=== PATIENT | female | born 1960 | race Caucasian/White ===

== ENCOUNTER 2021-04-14 23:48 | Inpatient (IN) | payer BC ==
--- OUTSIDE RECORDS SUMMARY | 2021-04-14 23:50 | XMS REPORT | Continuity of Care Document ---
:1960 Author Organization [facility] t Address [address] [place] [address] Care Team Providers Name Role Phone Unavailable Unavailable Unavailable Problems This patient has no known problems. Allergies, Adverse Reactions, Alerts Allergy Allergy Status Severity Reaction(s) Onset Inactive Treating Comm ents Source Name Type Date Date Clinician Macrobid Adverse Active [facility] like [facility] Medications Ordered Filled Start Stop Current Ordering Indication Dosage Frequency Signature Comments Components Source Medication Medication Date Date Medication? Clinician (SIG) Name Name BuPROPion BuPROPion Yes Jennifer [address] [facility] HCl HCl [place] [facility] Procedures This patient has no known procedures. Encounters Start End Encounter Admission Attending Care Care Encounter Source Date/Time Date/Time Type Type Clinicians Facility Department ID 2020-12-06 2020-12-[address] [facility] [id number] [facility] 2020-05-08 2020-05-08 [facility] [id number] [facility] 2019-11-04 2019-11-04 [facility] [id number] [facility] 15:42[facility]00 15:42:00 [facility] 2019-10-13 2019-10-13 [facility] [id number] [facility] 10[facility]20:00 10:20:00 [facility] 2019-04-12 2019-04-12 Outpatient Gael Tavarez [id number] [facility] 10:20:00 10:20:00 [facility] ent Clinics Results This patient has no known results.
[2021-04-15] MEDS ORDERED: METHYLPREDNISOLONE 125 MG INJ ONE (00:59)
[2021-04-15 01:04] LABS: Absolute Lymphocytes (CBC) 0.7 K/uL (0.7-4.9); Basophils % 0.3 % (0-1.3); Hematocrit 39.4 % (36.0-45.0); MPV 8.2 fL (7.6-11.3); RBC Red Blood Cell Count 4.19 M/uL (3.86-4.86)
[2021-04-15 01:05] LABS: Protime INR 1.1
[2021-04-15 01:11] LABS: ALT/SGPT 115 U/L (12-78); AST/SGOT 128 U/L (15-37); Albumin 2.5 g/dL (3.4-5.0); Alkaline Phosphatase 263 U/L (45-117); BUN Blood Urea Nitrogen 15 mg/dL (7-18); Bicarbonate 34 mmol/L (21-32); Bilirubin Direct 0.1 mg/dL (0-0.2); Bilirubin Total 0.3 mg/dL (0.2-1.0); Glucose Level 127 mg/dL (74-106); Magnesium 2.3 mg/dL (1.8-2.4); NT PRO-BNP 109 pg/mL (<125); Potassium 3.3 mmol/L (3.5-5.1); Protein, Total 6.5 g/dL (6.4-8.2); Sodium Level 137 mmol/L (136-145); Troponin (Emerg Dept Use Only) < 0.02 ng/mL (0.0-0.045)
[2021-04-15 02:31] LABS: Blood Morphology Comment NOT SEEN (NOT SEEN); Platelet Estimate ADEQ
--- NOTE | 2021-04-15 03:01 | EDPHYS ---
Physician Documentation [facility] Name: Sofía Moise Age: 60 yrs Sex: Female : 1960 Arrival Date: 04/14/2021 Time: 23:49 Bed 8 Private MD: ED Physician Nghia Arellano HPI: 04/14 23:50 This 60 yrs old Female presents to ER via Unassigned with complaints of mh7 Breathing Difficulty - LOW O2-69%. 23:50 The patient has shortness of breath at rest, with light activity. Onset: The mh7 symptoms/episode began/occurred 1 week(s) ago. Duration: The symptoms are intermittent, with no pattern. The patient's shortness of breath is aggravated by coughing, exertion, light activity, is alleviated by nothing. Associated signs and symptoms: Pertinent positives: non-productive cough, Pertinent negatives: chest pain, productive cough, diaphoresis, dizziness, fever, hemoptysis, loss of consciousness, nausea, numbness in extremities, visual changes, vomiting. Severity of symptoms: At their worst the symptoms were moderate yesterday, in the emergency department the symptoms are unchanged. Historical: - Allergies: 04/15 00:25 Nitrofurantoin; ea - Immunization history:: Adult Immunizations unknown. - Social history:: Smoking status: Patient denies any tobacco usage or history of. ROS: 04/14 23:50 Constitutional: Negative for fever, chills, and weight loss, Eyes: Negative for injury, mh7 pain, redness, and discharge, ENT: Negative for injury, pain, and discharge, Neck: Negative for injury, pain, and swelling, Cardiovascular: Negative for chest pain, palpitations, and edema, Abdomen/GI: Negative for abdominal pain, nausea, vomiting, diarrhea, and constipation, Back: Negative for injury and pain, : Negative for injury, bleeding, discharge, and swelling, MS/Extremity: Negative for injury and deformity, Skin: Negative for injury, rash, and discoloration, Neuro: Negative for headache, weakness, numbness, tingling, and seizure, Psych: Negative for depression, anxiety, suicide ideation, homicidal ideation, and hallucinations, Allergy/Immunology: Negative for hives, rash, and allergies, Endocrine: Negative for neck swelling, polydipsia, polyuria, polyphagia, and marked weight changes, Hematologic/Lymphatic: Negative for swollen nodes, abnormal bleeding, and unusual bruising. Exam: 23:50 Head/Face: Normocephalic, atraumatic. Eyes: Pupils equal round and reactive to light, mh7 extra-ocular motions intact. Lids and lashes normal. Conjunctiva and sclera are non-icteric and not injected. Cornea within normal limits. Periorbital areas with no swelling, redness, or edema. Neck: Trachea midline, no thyromegaly or masses palpated, and no cervical lymphadenopathy. Supple, full range of motion without nuchal rigidity, or vertebral point tenderness. No Meningismus. Chest/axilla: Normal chest wall appearance and motion. Nontender with no deformity. No lesions are appreciated. Abdomen/GI: Soft, non-tender, with normal bowel sounds. No distension or tympany. No guarding or rebound. No evidence of tenderness throughout. Back: No spinal tenderness. No costovertebral tenderness. Full range of motion. Skin: Warm, dry with normal turgor. Normal color with no rashes, no lesions, and no evidence of cellulitis. MS/ Extremity: Pulses equal, no cyanosis. Neurovascular intact. Full, normal range of motion. Neuro: Awake and alert, GCS 15, oriented to person, place, time, and situation. Cranial nerves II-XII grossly intact. Motor strength 5/5 in all extremities. Sensory grossly intact. Cerebellar exam normal. Normal gait. Psych: Awake, alert, with orientation to person, place and time. Behavior, mood, and affect are within normal limits. 23:50 Constitutional: The patient appears alert, awake, in obvious distress, mildly distressed, obviously ill. 23:50 Cardiovascular: Regular rate and rhythm with a normal S1 and S2. No gallops, murmurs, mh7 or rubs. Normal PMI, no JVD. No pulse deficits. 23:50 Respiratory: mild respiratory distress is noted, Respirations: prolonged exhalation, that is mild, Breath sounds: rhonchi, that are moderate, are heard diffusely, Respiratory rate: 30 Vital Signs: 04/15 00:23 BP 126 / 70; Pulse 86; Resp 30; Temp 99.1; Pulse Ox 62% on R/A; ea 00:23 pt placed on O2 at 4L per nasal cannula ea MDM: 02:59 Differential diagnosis: Anemia Anxiety Reaction asthma, Bronchitis CHF exacerbation, mh7 Chronic Obstructive Pulmonary Disease Myocardial Infarction pneumonia, Pneumothorax Psychogenic pulmonary edema, Pulmonary Embolism reactive airway disease. Data reviewed: vital signs, nurses notes, lab test result(s), cardiac enzymes, CBC, electrolytes, EKG, radiologic studies, plain films. Data interpreted: Pulse oximetry: on 4L(s) per nasal canula, is 93 %. Interpretation: acceptable. Counseling: I had a detailed discussion with the patient and/or guardian regarding: the historical points, exam findings, and any diagnostic results supporting the discharge/admit diagnosis, lab results, radiology results, the need for further work-up and treatment in the hospital. Response to treatment: the patient's symptoms have mildly improved after treatment. 03:01 Patient medically screened. [facility] 04/15 00:03 Order name: Basic Metabolic Panel; Complete Time: 01:27 [facility] 04/15 00:03 Order name: CBC with Diff; Complete Time: 02:32 [facility] 04/15 00:03 Order name: LFT's; Complete Time: 01: [facility] 04/15 00:03 Order name: Magnesium; Complete Time: 01:27 [facility] 04/15 00:03 Order name: NT PRO-BNP; Complete Time: 01:27 [facility] 04/15 00:03 Order name: PT-INR; Complete Time: 01:10 [facility] 04/15 00:03 Order name: Troponin (emerg Dept Use Only); Complete Time: 01:27 [facility] 04/15 00:05 Order name: Lactate; Complete Time: 01:27 [facility] 04/15 00:05 Order name: Procalcitonin; Complete Time: 01:55 [facility] 04/15 01:07 Order name: Manual Differential; Complete Time: 02:32 [facility] 04/15 02:32 Order name: SARS-COV-2 RT PCR; Complete Time: 02:32 [facility] 04/15 10:07 Order name: Glucose, Ancillary Testing [facility] 04/15 10:36 Order name: Procalcitonin [facility] 04/15 00:03 Order name: XRAY Chest (1 view) [facility] 04/15 00:03 Order name: EKG; Complete Time: 00:05 [facility] 04/15 00:03 Order name: Cardiac monitoring; Complete Time: 00:31 [facility] 04/15 00:03 Order name: EKG - Nurse/Tech; Complete Time: 00: 7 04/15 00:03 Order name: IV Saline Lock; Complete Time: : [facility] 04/15 00:03 Order name: Labs collected and sent; Complete Time: 00: [facility] 04/15 01:34 Order name: CT Chest For PE Angio [facility] 04/15 02:53 Order name: CONS Physician Consult [facility] 04/15 10:29 Order name: US [facility] 04/15 10:49 Order name: C-Reactive Protein [facility] 04/15 10:49 Order name: Ferritin [facility] 04/15 00:03 Order name: O2 Per Protocol; Complete Time: 00:12 [facility] 04/15 00:03 Order name: O2 Sat Monitoring; Complete Time: 00:12 [facility] Administered Medications: 00:40 Drug: SOLU-Medrol (methylPrednisoLONE) 80 mg Route: IVP; Site: right antecubital; ea 04:17 Follow up: Response: No adverse reaction ea 00:40 Not Given (Other Intervention Used): Albuterol HFA Inhaler 2 puffs Inhalation once ea 03:35 CANCELLED (Other Intervention Used): Ativan (LORazepam) 0.5 mg PO once ej 04:12 Drug: Albuterol - atroVENT (ipratropium) (3:1) (2.5 mg - 0.5 mg) 3 ml Route: Nebulizer; ea 04:17 Follow up: Response: No adverse reaction ea 04:17 Drug: morphine 2 mg Route: IVP; Site: right antecubital; ea Disposition Summary: 04/15/21 03:01 Hospitalization Ordered Hospitalization Status: Inpatient Admission [facility] Provider: Daniel Baer Elaine Condition: Stable [facility] Problem: new [facility] Symptoms: have improved [facility] Bed/Room Type: Standard [facility] Location: Intensive Care Unit(04/15/21 21:00) mw Room Assignment: 5-(04/15/21 21:00) Diagnosis - COVID Pneumonia, Hypoxia [facility] Forms: - Medication Reconciliation Form [facility] - SBAR form [facility] Signatures: Dispatcher [employer] EDLeni Schaefer RN RN mw Antunez, Elena, RN RN ea Holmes, Maurice, MD MD Alfa Mayfield PA PA ej Corrections: (The following items were deleted from the chart) 00:44 00:05 CORONAVIRUS+MRRIGO.BRZ ordered. EDMS EDMS 03:20 03:01 Telemetry/MedSurg (Inpatient) mh7 mw 03:20 03:01 mh7 mw 03:35 03:35 Ativan (LORazepam) 0.5 mg PO once ordered. frances daniels : 03:20 BR ER HOLD mw mw 21:00 03:20 ERHOLD- mw mw 21:00 21:00 mw mw
--- NOTE | 2021-04-15 03:01 | ER ---
Nurse's Notes [facility] Name: Sofía Moise Age: 60 yrs Sex: Female : 1960 Arrival Date: 04/14/2021 Time: 23:49 Bed 8 Private MD: Diagnosis: COVID Pneumonia, Hypoxia Presentation: 04/15 00:23 Chief complaint: Patient states: Reports she started feeling flu like symptoms about a ea week ago states she started feeling worse and today she reports feeling very short of breath. Coronavirus screen: Client presents with at least one sign or symptom that may indicate coronavirus-19. Ebola Screen: No symptoms or risks identified at this time. Initial Sepsis Screen: Does the patient meet any 2 criteria? No. Patient's initial sepsis screen is negative. Does the patient have a suspected source of infection? No. Patient's initial sepsis screen is negative. Risk Assessment: Do you want to hurt yourself or someone else? Patient reports no desire to harm self or others. Onset of symptoms was April 15, 2021. 00:23 Method Of Arrival: Wheelchair ea 00:23 Acuity: SHA 3 ea Triage Assessment: 00:29 General: Appears uncomfortable, Behavior is cooperative. Pain: Denies pain. ea Respiratory: Reports shortness of breath Onset: The symptoms/episode began/occurred today, the patient has moderate shortness of breath. Historical: - Allergies: 00:25 Nitrofurantoin; ea - Immunization history:: Adult Immunizations unknown. - Social history:: Smoking status: Patient denies any tobacco usage or history of. Screenin:07 Abuse screen: Denies threats or abuse. Nutritional screening: No deficits noted. ea Tuberculosis screening: No symptoms or risk factors identified. Fall Risk None identified. Assessment: 00:30 General: Appears uncomfortable, Behavior is appropriate for age. Pain: Denies pain. ea Neuro: Level of Consciousness is awake, alert, obeys commands, Oriented to person, place, time. Cardiovascular: Patient's skin is warm and dry. Rhythm is sinus rhythm. Respiratory: Airway is patent Respiratory effort is even, Respiratory pattern is tachypnea. Derm: Skin is normal, Skin temperature is warm. Vital Signs: 00:23 BP 126 / 70; Pulse 86; Resp 30; Temp 99.1; Pulse Ox 62% on R/A; ea 00:23 pt placed on O2 at 4L per nasal cannula ea ED Course: 04/14 23:49 Patient arrived in ED. wm 23:52 Nghia Arellano MD is Attending Physician. [facility] 04/15 00:20 XRAY Chest (1 view) In Process Unspecified. EDMS 00:25 Triage completed. ea 00:25 Patient has correct armband on for positive identification. Bed in low position. Call ea light in reach. 00:25 Arm band placed on right wrist. Patient placed in an exam room, on a stretcher, on ea pulse oximetry. 00:31 Vikki Apple RN is Primary Nurse. ea 02:32 CT Chest For PE Angio In Process Unspecified. EDMS 03:00 Daniel Baer DO is Hospitalizing Provider. [facility] 22:38 No provider procedures requiring assistance completed. ea 22:39 Patient admitted, IV remains in place. ea Administered Medications: 00:40 Drug: SOLU-Medrol (methylPrednisoLONE) 80 mg Route: IVP; Site: right antecubital; ea 04:17 Follow up: Response: No adverse reaction ea 00:40 Not Given (Other Intervention Used): Albuterol HFA Inhaler 2 puffs Inhalation once ea 03:35 CANCELLED (Other Intervention Used): Ativan (LORazepam) 0.5 mg PO once ej 04:12 Drug: Albuterol - atroVENT (ipratropium) (3:1) (2.5 mg - 0.5 mg) 3 ml Route: Nebulizer; ea 04:17 Follow up: Response: No adverse reaction ea 04:17 Drug: morphine 2 mg Route: IVP; Site: right antecubital; ea Outcome: 03:01 Decision to Hospitalize by Provider. [facility] 22:38 Admitted to ICU accompanied by [facility], room 5, Report called to Receiving nurse in ICU ea 22:38 Condition: stable 22:38 Instructed on the need for admit, Demonstrated understanding of instructions. 22:41 Patient left the ED. ea Signatures: Dispatcher [employer] EDWY Vikki Apple, Nghia Villalba RN, ea, MD MD [facility] Bebe Garnica Evan PA ej
--- NOTE | 2021-04-15 03:48 | P.HP ---
Certification for Inpatient Patient admitted to: Inpatient With expected LOS: >2 Midnights Patient will require the following post-hospital care: None Practitioner: I am a practitioner with admitting privileges, knowledge of patient current condition, hospital course, and medical plan of care. Services: Services provided to patient in accordance with Admission requirements found in Title 42 Section 412.3 of the Code of Federal Regulations Patient History Date of Service: 04/15/21 Reason for admission: covid pneumonia History of Present Illness: Ms. Moise is a 60 yo F who presents with one week of cough and SOB. She tested positive for COVID today. Reports nausea and pleuritic pain. Denies vomiting, diarrhea, wheezing. Still has good appetite and fluid intake. CXR shows covid pneumonia. Of note, was supposed to have a cholecystectomy at the beginning of March. Allergies nitrofurantoin [From Macrobid] Allergy (Verified 03/26/21 12:44) Nausea/Vomiting Home Medications: Ascorbic Acid [Vitamin C*] 1,000 mg PO DAILY 03/26/21 Bismuth Subsalicylate [Pepto-Bismol] 262 mg PO PRN PRN 03/26/21 Bupropion HCl [Wellbutrin Sr] 100 mg PO BID 03/26/21 Calcium Carbonate [Tums] 200 mg PO PRN PRN 03/26/21 Ferrous Sulfate [Slow Fe] 142 mg PO DAILY 03/26/21 Ibuprofen [Motrin Ib] 200 mg PO PRN PRN 03/26/21 Lansoprazole [Prevacid] 30 mg PO DAILY 03/26/21 Pseudoephedrine HCl [Sudafed] 30 mg PO DAILY 03/26/21 - Past Medical/Surgical History Diabetic: No Past Medical History: Patient denies medical history -: C section -: tubal ligation - Family History Family History: Reviewed- Non-Contributory - Social History Smoking Status: Never smoker Alcohol use: No CD- Drugs: No Caffeine use: Yes Place of Residence: Home Review of Systems 10-point ROS is otherwise unremarkable General: Malaise Respiratory: Cough, Shortness of Breath, Pleuritic Pain Gastrointestinal: Nausea Physical Examination - Physical Exam General: Alert, In no apparent distress HEENT: Atraumatic, PERRLA, Mucous membr. moist/pink, EOMI, Sclerae nonicteric Neck: Supple, 2+ carotid pulse no bruit, No LAD, Without JVD or thyroid abnormality Respiratory: Normal air movement, Rhonchi/gurgles Cardiovascular: Regular rate/rhythm, Normal S1 S2 Gastrointestinal: Normal bowel sounds, No tenderness Musculoskeletal: No tenderness Integumentary: No rashes Neurological: Normal speech, Normal strength at 5/5 x4 extr, Normal tone, Normal affect Lymphatics: No axilla or inguinal lymphadenopathy - Studies Laboratory Data (last 24 hrs) 04/15/21 00:22: PT 12.7 H, INR 1.10 04/15/21 00:22: WBC 11.00 H, Hgb 13.6, Hct 39.4, Plt Count 237 04/15/21 00:22: Sodium 137, Potassium 3.3 L, BUN 15, Creatinine 0.75, Glucose 127 H, Magnesium 2.3, Total Bilirubin 0.3, AST 128 H, ALT 115 H, Alkaline Phosphatase 263 H Assessment and Plan - Problems (Diagnosis) (1) Pneumonia due to COVID-19 virus Current Visit: Yes Status: Acute - Plan pulm consulted, RT consulted room air sats daily, sats for home O2 daily CRP, ferritin, procal IV steroids, covid supplements, ivermectin ultrasound of the gallbladder pending DVT ppx Discharge Plan: Home Plan to discharge in: 48 Hours - Advance Directives Does patient have a Living Will: No Does patient have a Durable POA for Healthcare: No - Code Status/Comfort Care Code Status Assessed: Yes (full code ) Critical Care: No Time Spent Managing Pts Care (In Minutes): 70
[2021-04-15] MEDS ORDERED: IPRATROPIUM BROM 0.5MG/2.5ML ONE (04:24)
[2021-04-15] MEDS ORDERED: ALBUTEROL 2.5 MG/3 ML NEB SOL ONE (04:24)
[2021-04-15] MEDS ORDERED: MORPHINE 2 MG/ML SYR ONE (04:24)
--- NOTE | 2021-04-15 08:56 | RAD REPORT ---
EXAM DESCRIPTION: RAD - Chest Single View - 04/15/2021 12:17 am CLINICAL HISTORY: SOB COMPARISON: March 26 TECHNIQUE: AP portable chest image was obtained 04/15/2021 12:17 am . FINDINGS: Lung volumes are low. There is extensive bilateral airspace opacification present more per ipheral than central in distribution. Positive COVID test history was not detailed. In the current inical environment, this lung pattern would most likely be moderate severity COVID-19 pneumonia. Non COVID pneumonia etiologies are possible as well. No mass or cavitation component. Trachea is midline. Heart and vasculature are normal. No measurable pleural effusion and no pneumothorax. No acute bony abnormality seen. No acute aortic findings suspected. IMPRESSION: Moderate severity bilateral lung parenchymal opacification. In the current clinical envi ronment, moderate severity COVID-19 pneumonia is most likely etiology.
[2021-04-15] MEDS: INSULIN -REGULAR HUMAN 50 UNIT/0.5 ML ML SQ SCH ×3 (09:49→23:53)
[2021-04-15] MEDS ORDERED: VITAMIN D 1000 UNIT TAB ONE (09:54)
[2021-04-15] MEDS ORDERED: ASCORBIC ACID 500 MG TABLET ONE ×4 (09:54→21:31)
[2021-04-15] MEDS ORDERED: METHYLPREDNISOLONE 40 MG INJ ONE ×2 (09:54→21:32)
[2021-04-15] MEDS ORDERED: THIAMINE HCL 100 MG TABLET ONE (09:54)
[2021-04-15] MEDS ORDERED: ASPIRIN EC 81 MG TAB PO ONE (09:54)
[2021-04-15] MEDS ORDERED: ZINC SULFATE 220 MG CAP ONE (09:54)
[2021-04-15] MEDS ORDERED: FAMOTIDINE 20 MG TAB ONE ×2 (09:55→21:32)
[2021-04-15] MEDS: THIAMINE HCL 100 MG TABLET PO SCH (10:00)
[2021-04-15] MEDS: FAMOTIDINE 20 MG TAB PO SCH ×2 (10:00→21:00)
[2021-04-15] MEDS: ASPIRIN EC 81 MG TAB PO SCH (10:00)
[2021-04-15] MEDS: ASCORBIC ACID 500 MG TABLET PO SCH ×4 (10:00→21:00)
[2021-04-15] MEDS: VITAMIN D 1000 UNIT TAB PO SCH (10:00)
[2021-04-15] MEDS: METHYLPREDNISOLONE 125 MG INJ IV SCH ×2 (10:00→21:00)
[2021-04-15] MEDS: ZINC SULFATE 220 MG CAP PO SCH (10:00)
--- NOTE | 2021-04-15 10:28 | RAD REPORT ---
EXAM DESCRIPTION: US - Abdomen Exam Limited - 04/15/2021 9:46 am CLINICAL HISTORY: evaluate gallbladder COMPARISON: Abdomen Exam Complete dated 03/19/2021 FINDINGS: Numerous small gallstones are present in the gallbladder lumen. There is no wall thickenin g or pericholecystic fluid. No common duct stone or biliary tree dilatation identified. IMPRESSION: Multi stone cholelithiasis without wall thickening or pericholecystic fluid. No biliary tree abnormality.
[2021-04-15] MEDS: IVERMECTIN 3 MG TABLET PO SCH (10:45)
[2021-04-15 10:49] LABS: Ferritin 151.9 ng/mL (8-388)
[2021-04-15] MEDS ORDERED: REMDESIVIR (EUA) 200 MG in NA CHLORIDE 0.9% 250 ML IV ONE (11:30)
--- NOTE | 2021-04-15 12:25 | RAD REPORT ---
EXAM DESCRIPTION: CT - Chest For Pe Angio - 04/15/2021 6:54 am CLINICAL HISTORY: 60 years, Female, SOB COMPARISON: None. TECHNIQUE: Axial images through the chest were performed after the administration of intravenous con trast using a pulmonary embolus protocol. MIPS were performed. This exam was performed according to our departmental dose-optimization program which includes use of Automated Exposure Control, adjustm ent of the mA and/or kV according to patient size and/or use of iterative reconstruction technique. FINDINGS: No pulmonary embolus is identified. Normal caliber aorta without dissection. No pericardial effusion. Extensive interstitial groundglass opacities throughout the entire lungs with relative sparing of the apices. The trachea and central airways are clear. There is no pneumothorax. No pleural fluid collec tion on the right. Trace fluid collection on the left. Soft tissues are unremarkable. No acute osseous findings. No acute abnormality within the visualized upper abdomen. IMPRESSION: No pulmonary embolus. Extensive diffuse groundglass opacities throughout the lungs typical of Covid 19. Electronically signed by: Luis Enrique Pillai DO 04/15/2021 4:42 AM CDT Due to temporary technical issues with the PACS/Fluency reporting system, reports are being signed by the in house radiologist without review as a courtesy to ensure prompt reporting. The interpreting r adiologist is fully responsible for the content of the report.
[2021-04-15 14:12] VITALS: BMI 36.8
[2021-04-15] MEDS ORDERED: CALCIUM CARBONATE CHEW 500MG TAB PO PRN (15:44)
[2021-04-15] MEDS ORDERED: BISMUTH SUBSALICYL 262MG/15ML-240 ML BTL PO PRN (16:30)
--- NOTE | 2021-04-15 16:51 | P.PN ---
Date of Service: 04/15/21 Patient seen and examined. She is currently requiring 100% non-rebreather. Impression: Pneumonia due to COVID 19. Acute respiratory failure with hypoxia GERD. Plan: IV steroid, vitamin supplementation. Remdesivir started. Monitor inflammatory markers. Pulmonary consult. Titrate oxygen. Watch for steroid induced hyperglycemia. Resume home GERD medications.
[2021-04-15] MEDS: RIVAROXABAN 20 MG TABLET PO SCH (17:00)
[2021-04-15] MEDS: CALCIUM CARBONATE CHEW 500MG TAB PO PRN (17:00)
[2021-04-15] MEDS ORDERED: RIVAROXABAN 10 MG TABLET PO SCH (17:00)
[2021-04-15] MEDS ORDERED: RIVAROXABAN 20 MG TABLET PO ONE (17:29)
[2021-04-15] MEDS ORDERED: CALCIUM CARBONATE CHEW 500MG TAB ONE (17:31)
[2021-04-15] MEDS: SUCRALFATE 1 GM TABLET PO SCH (21:00)
[2021-04-15] MEDS: buPROPion HCL 100 MG TAB PO SCH (21:00)
[2021-04-15] MEDS: ONDANSETRON 4 MG/2 ML VIAL IV PRN (21:13)
[2021-04-15] MEDS: BENZONATATE 100 MG CAP PO PRN (21:13)
[2021-04-15] MEDS: MELATONIN 5 MG TABLET PO PRN (21:13)
[2021-04-15] MEDS ORDERED: SUCRALFATE 1 GM TABLET ONE (21:31)
[2021-04-15] MEDS ORDERED: ONDANSETRON 4 MG (ODT) TAB ONE (21:33)
[2021-04-15] MEDS ORDERED: BENZONATATE 100 MG CAP PO ONE (21:33)
[2021-04-15] MEDS ORDERED: MELATONIN 5 MG TABLET PO ONE (21:34)
[2021-04-15] MEDS: MORPHINE 2 MG/ML SYR IV PRN (23:39)
[2021-04-16 05:09] LABS: Absolute Lymphocytes (CBC) 0.6 K/uL (0.7-4.9); Hematocrit 36.3 % (36.0-45.0); Lymphocytes % 4.1 % (15.3-44.8); MPV 7.9 fL (7.6-11.3); RBC Red Blood Cell Count 3.87 M/uL (3.86-4.86)
[2021-04-16 05:50] LABS: Albumin 2.3 g/dL (3.4-5.0); Bilirubin Direct 0.1 mg/dL (0-0.2); Bilirubin Total 0.3 mg/dL (0.2-1.0); Ferritin 4538.2 ng/mL (8-388); Magnesium 2.7 mg/dL (1.8-2.4); Phosphorus 3.4 mg/dL (2.5-4.9); Potassium 3.7 mmol/L (3.5-5.1); Protein, Total 6.1 g/dL (6.4-8.2); Thyroid Stimulating Hormone 0.443 uIU/mL (0.360-3.740)
--- NOTE | 2021-04-16 07:27 | P.PN ---
Subjective Date of Service: 04/16/21 Chief Complaint: covid pneumonia Subjective: Improving (requiring high levels of HFNC/NRB to maintain SpO2: 90%, feels better today compared to yesterday, no significant shortness of breath at rest currently. reports h/o anxiety and gets anxious after moving. felt slightly better when sitting up and leaning forward) Review of Systems 10-point ROS is otherwise unremarkable Physical Examination - Vital Signs Temperature: 97.9 F Blood Pressure: 96/61 Pulse: 84 Respirations: 24 Pulse Ox (%): 90 Assessment & Plan Physician Review Additional Text: Physical exam GEN: Alert, oriented HEENT: Normal conjunctiva, sclera anicteric CV: Regular rate and rhythm, no edema Pulm: Mildly labored respirations on high flow nasal cannula ABD: Soft, nontender, nondistended Integumentary: No rashes Neuro: Normal speech, normal affect Problem list Acute respiratory failure with hypoxia, secondary to COVID-19 pneumonia GERD IV steroid, vitamin supplementation. Remdesivir started. Monitor inflammatory markers. Slight improvement Pulmonary consult. Recommends baricitinib Titrate oxygen. Watch for steroid induced hyperglycemia. continue ICU level of care for now Dispo: anticipate hospitalization > 2 days Time Spent Managing Pts Care (In Minutes): 35
--- NOTE | 2021-04-16 08:42 | P.CNS ---
Date of Consult: 04/16/21 Reason for Consult: Respiratory failure Chief Complaint: covid pneumonia History of Present Illness: Patient is 60 years old patient is 60 years of age admitted to the ICU with respiratory failure diagnosis of coronavirus pneumonia very hypoxic Allergies nitrofurantoin [From Macrobid] Allergy (Verified 03/26/21 12:44) Nausea/Vomiting Home Medications: Ascorbic Acid [Vitamin C*] 1,000 mg PO DAILY 03/26/21 Bismuth Subsalicylate [Pepto-Bismol] 262 mg PO PRN PRN 03/26/21 Bupropion HCl [Wellbutrin Sr] 100 mg PO BID 03/26/21 Calcium Carbonate [Tums] 200 mg PO PRN PRN 03/26/21 Ferrous Sulfate [Slow Fe] 142 mg PO DAILY 03/26/21 Ibuprofen [Motrin Ib] 200 mg PO PRN PRN 03/26/21 Lansoprazole [Prevacid] 30 mg PO DAILY 03/26/21 Pseudoephedrine HCl [Sudafed] 30 mg PO DAILY 03/26/21 Pantoprazole [Protonix Tab*] 40 mg PO DAILY 04/15/21 Sucralfate [Carafate] 1 gm PO BEDTIME 04/15/21 - Past Medical/Surgical History Diabetic: No -: Anxiety -: Depression -: Acid Reflux -: C section -: tubal ligation - Social History Alcohol use: No CD- Drugs: No Caffeine use: Yes Place of Residence: Home Review of Systems General: Weakness Respiratory: Shortness of Breath Physical Examination Temp Pulse Resp BP Pulse Ox 97.9 F 84 24 H 96/61 90 L 04/16/21 07:27 04/16/21 07:27 04/16/21 07:27 04/16/21 07:27 04/16/21 07:27 General: Alert, Moderate distress - Problems (1) Pneumonia due to COVID-19 virus Current Visit: Yes Status: Acute Plan: Patient is 60 years of age admitted with severe coronavirus pneumonia severe diffuse severe diffuse bilateral groundglass changes continue with steroids continue with steroids patient is a candidate for Barcitinib therapy continues to remain hypoxic trial of BiPAP
[2021-04-16] MEDS: ASCORBIC ACID 500 MG TABLET PO SCH ×4 (08:43→20:23)
[2021-04-16] MEDS: VITAMIN D 1000 UNIT TAB PO SCH (08:43)
[2021-04-16] MEDS: THIAMINE HCL 100 MG TABLET PO SCH (08:43)
[2021-04-16] MEDS: FAMOTIDINE 20 MG TAB PO SCH ×2 (08:43→20:23)
[2021-04-16] MEDS: ASPIRIN EC 81 MG TAB PO SCH (08:43)
[2021-04-16] MEDS: ZINC SULFATE 220 MG CAP PO SCH (08:43)
[2021-04-16] MEDS: METHYLPREDNISOLONE 125 MG INJ IV SCH ×2 (08:43→20:26)
[2021-04-16] MEDS: FERROUS SULFATE 142 MG PO SCH (08:44)
[2021-04-16] MEDS: FENOFIBRATE 160 MG TAB PO SCH (08:48)
[2021-04-16] MEDS: PANTOPRAZOLE 40MG TABLET PO SCH (08:48)
[2021-04-16] MEDS ORDERED: REMDESIVIR (EUA) 100 MG in NA CHLORIDE 0.9% 250 ML IV SCH (09:00)
[2021-04-16] MEDS: MORPHINE 2 MG/ML SYR IV PRN ×2 (09:03→21:04)
[2021-04-16] MEDS: buPROPion HCL 100 MG TAB PO SCH ×2 (09:16→20:23)
[2021-04-16] MEDS: BARICITINIB 2 MG TABLET PO SCH (09:16)
[2021-04-16] MEDS: RIVAROXABAN 20 MG TABLET PO SCH (17:41)
[2021-04-16] MEDS: SUCRALFATE 1 GM TABLET PO SCH (20:23)
[2021-04-16] MEDS: ACETAMINOPHEN 500 MG TAB PO PRN (20:25)
[2021-04-17] MEDS: MORPHINE 2 MG/ML SYR IV PRN ×2 (03:58→13:11)
[2021-04-17 05:22] LABS: Absolute Lymphocytes (CBC) 0.6 K/uL (0.7-4.9); Basophils % 0.1 % (0-1.3); Lymphocytes % 4.7 % (15.3-44.8); MPV 7.5 fL (7.6-11.3); RBC Red Blood Cell Count 3.83 M/uL (3.86-4.86)
--- NOTE | 2021-04-17 05:50 | P.PN ---
Subjective Date of Service: 04/17/21 Chief Complaint: covid pneumonia Subjective: Improving (feeling better, breathing more comfortably, no new complaints) Review of Systems 10-point ROS is otherwise unremarkable Physical Examination - Vital Signs Temperature: 97.9 F Blood Pressure: 130/70 Pulse: 71 Respirations: 18 Pulse Ox (%): 94 Assessment & Plan Physician Review Additional Text: Physical exam GEN: Alert, oriented HEENT: Normal conjunctiva, sclera anicteric CV: Regular rate and rhythm, no edema Pulm: non-labored respirations on high flow nasal cannula ABD: Soft, nontender, nondistended Neuro: Normal speech, normal affect Problem list Acute respiratory failure with hypoxia, secondary to COVID-19 pneumonia GERD IV steroid, vitamin supplementation. Remdesivir started. Monitor inflammatory markers. Slight improvement Pulmonary consult. Recommended baricitinib Titrate oxygen. Watch for steroid induced hyperglycemia. transfer to floor today Dispo: anticipate hospitalization > 2 days Time Spent Managing Pts Care (In Minutes): 35
[2021-04-17 06:30] LABS: Albumin 2.4 g/dL (3.4-5.0); Bilirubin Direct 0.1 mg/dL (0-0.2); Bilirubin Total 0.4 mg/dL (0.2-1.0); Potassium 3.7 mmol/L (3.5-5.1); Protein, Total 5.9 g/dL (6.4-8.2)
[2021-04-17 06:47] LABS: C-Reactive Protein 58.2 mg/L (<3.00); Ferritin 2971.8 ng/mL (8-388)
[2021-04-17] MEDS: FENOFIBRATE 160 MG TAB PO SCH (08:41)
[2021-04-17] MEDS: THIAMINE HCL 100 MG TABLET PO SCH (08:41)
[2021-04-17] MEDS: VITAMIN D 1000 UNIT TAB PO SCH (08:41)
[2021-04-17] MEDS: FAMOTIDINE 20 MG TAB PO SCH ×2 (08:41→21:22)
[2021-04-17] MEDS: METHYLPREDNISOLONE 125 MG INJ IV SCH ×2 (08:41→21:23)
[2021-04-17] MEDS: ASPIRIN EC 81 MG TAB PO SCH (08:41)
[2021-04-17] MEDS: FERROUS SULFATE 142 MG PO SCH (08:42)
[2021-04-17] MEDS: PANTOPRAZOLE 40MG TABLET PO SCH (08:42)
[2021-04-17] MEDS: ASCORBIC ACID 500 MG TABLET PO SCH ×4 (08:42→21:22)
[2021-04-17] MEDS: ZINC SULFATE 220 MG CAP PO SCH (08:42)
[2021-04-17] MEDS: buPROPion HCL 100 MG TAB PO SCH ×2 (08:44→21:22)
[2021-04-17] MEDS: BARICITINIB 2 MG TABLET PO SCH (08:44)
[2021-04-17] MEDS: IVERMECTIN 3 MG TABLET PO SCH (08:44)
[2021-04-17] MEDS ORDERED: POTASSIUM CL SA 10 MEQ TAB PO ONE (09:04)
[2021-04-17] MEDS: ACETAMINOPHEN 500 MG TAB PO PRN (12:38)
[2021-04-17] MEDS: RIVAROXABAN 20 MG TABLET PO SCH (17:58)
[2021-04-17] MEDS ORDERED: IBUPROFEN 200 MG TAB PO ONE (20:35)
[2021-04-17] MEDS: BENZONATATE 100 MG CAP PO PRN (21:22)
[2021-04-17] MEDS: POLYETHYL GLY 3350 17 GM/DOSE PO PRN (21:22)
[2021-04-17] MEDS: SUCRALFATE 1 GM TABLET PO SCH (21:22)
[2021-04-18] MEDS: BENZONATATE 100 MG CAP PO PRN ×2 (05:04→21:06)
[2021-04-18 05:31] LABS: Absolute Lymphocytes (CBC) 1.3 K/uL (0.7-4.9); Basophils % 0.1 % (0-1.3); Hematocrit 35.9 % (36.0-45.0); Lymphocytes % 5.9 % (15.3-44.8); MPV 7.5 fL (7.6-11.3); RBC Red Blood Cell Count 3.83 M/uL (3.86-4.86)
[2021-04-18 06:06] LABS: ALT/SGPT 99 U/L (12-78); AST/SGOT 62 U/L (15-37); Albumin 2.5 g/dL (3.4-5.0); Alkaline Phosphatase 192 U/L (45-117); BUN Blood Urea Nitrogen 26 mg/dL (7-18); Bicarbonate 33 mmol/L (21-32); Bilirubin Direct 0.2 mg/dL (0-0.2); Bilirubin Total 0.6 mg/dL (0.2-1.0); Ferritin 2364.4 ng/mL (8-388); Glucose Level 99 mg/dL (74-106); Potassium 3.7 mmol/L (3.5-5.1); Protein, Total 5.7 g/dL (6.4-8.2); Sodium Level 141 mmol/L (136-145)
--- NOTE | 2021-04-18 06:20 | P.PN ---
Subjective Date of Service: 04/18/21 Chief Complaint: covid pneumonia Subjective: Improving (Feeling like her breathing is getting better, appetite is okay, difficult for her to continue with her particular diet while here. With headache overnight and this morning, likely from oxygen. Slight improvement with ibuprofen. None with Tylenol.) Review of Systems 10-point ROS is otherwise unremarkable Physical Examination - Vital Signs Temperature: 97.7 F Blood Pressure: 136/75 Pulse: 72 Respirations: 22 Pulse Ox (%): 93 Assessment & Plan Physician Review Additional Text: Physical exam GEN: Alert, oriented HEENT: Normal conjunctiva, sclera anicteric CV: Regular rate and rhythm, no edema Pulm: non-labored respirations on high flow nasal cannula ABD: Soft, nontender, nondistended Neuro: Normal speech, normal affect Problem list Acute respiratory failure with hypoxia, secondary to COVID-19 pneumonia GERD IV steroid, vitamin supplementation. Remdesivir Monitor inflammatory markers. Slight improvement Pulmonary consult. Continue baricitinib Titrate oxygen as tolerated Watch for steroid induced hyperglycemia. Transferred to floor on 04/17 Continues to improve Inflammatory markers improving Still requiring high levels of oxygen trial of tramadol for moderatesevere headache Dispo: anticipate hospitalization > 2 days Time Spent Managing Pts Care (In Minutes): 40
[2021-04-18] MEDS: PANTOPRAZOLE 40MG TABLET PO SCH ×2 (06:29→07:34)
[2021-04-18] MEDS ORDERED: IBUPROFEN 200 MG TAB PO ONE (07:00)
[2021-04-18] MEDS: FERROUS SULFATE 142 MG PO SCH (07:09)
[2021-04-18] MEDS: ZINC SULFATE 220 MG CAP PO SCH (07:33)
[2021-04-18] MEDS: ASPIRIN EC 81 MG TAB PO SCH (07:33)
[2021-04-18] MEDS: ASCORBIC ACID 500 MG TABLET PO SCH ×4 (07:33→21:06)
[2021-04-18] MEDS: buPROPion HCL 100 MG TAB PO SCH ×2 (07:33→21:06)
[2021-04-18] MEDS: VITAMIN D 1000 UNIT TAB PO SCH (07:33)
[2021-04-18] MEDS: FAMOTIDINE 20 MG TAB PO SCH ×2 (07:33→21:06)
[2021-04-18] MEDS: METHYLPREDNISOLONE 125 MG INJ IV SCH ×2 (07:34→21:06)
[2021-04-18] MEDS: FENOFIBRATE 160 MG TAB PO SCH (07:34)
[2021-04-18] MEDS: THIAMINE HCL 100 MG TABLET PO SCH (07:34)
[2021-04-18] MEDS: BARICITINIB 2 MG TABLET PO SCH (07:35)
[2021-04-18 08:44] LABS: Blood Morphology Comment NOT SEEN (NOT SEEN); Platelet Estimate ADEQ
[2021-04-18] MEDS ORDERED: POTASSIUM CL SA 10 MEQ TAB PO ONE (09:00)
[2021-04-18] MEDS: TRAMADOL HCL 50 MG TAB PO PRN (13:58)
[2021-04-18] MEDS: ACETAMINOPHEN 500 MG TAB PO PRN ×2 (16:12→21:08)
[2021-04-18] MEDS: RIVAROXABAN 20 MG TABLET PO SCH (16:13)
[2021-04-18] MEDS: ONDANSETRON 4 MG/2 ML VIAL IV PRN (19:56)
[2021-04-18] MEDS: LORazepam 2 MG/ML VIAL IV PRN (21:05)
[2021-04-18] MEDS: SUCRALFATE 1 GM TABLET PO SCH (21:06)
[2021-04-19] MEDS: ACETAMINOPHEN 500 MG TAB PO PRN (05:36)
[2021-04-19 06:05] LABS: Absolute Lymphocytes (CBC) 0.3 K/uL (0.7-4.9); Basophils % 0.4 % (0-1.3); Hematocrit 37.1 % (36.0-45.0); Lymphocytes % 1.5 % (15.3-44.8); MPV 7.2 fL (7.6-11.3); RBC Red Blood Cell Count 3.92 M/uL (3.86-4.86)
[2021-04-19 06:28] LABS: ALT/SGPT 81 U/L (12-78); AST/SGOT 41 U/L (15-37); Albumin 2.4 g/dL (3.4-5.0); Alkaline Phosphatase 214 U/L (45-117); BUN Blood Urea Nitrogen 17 mg/dL (7-18); Bicarbonate 31 mmol/L (21-32); Bilirubin Direct 0.4 mg/dL (0-0.2); Bilirubin Total 0.8 mg/dL (0.2-1.0); Glucose Level 156 mg/dL (74-106); Protein, Total 6.1 g/dL (6.4-8.2); Sodium Level 141 mmol/L (136-145)
[2021-04-19 06:51] LABS: Ferritin 2217.4 ng/mL (8-388)
[2021-04-19 07:05] LABS: Urine Appearance CLOUDY (Clear); Urine Bilirubin NEGATIVE (Negative); Urine Blood NEGATIVE (Negative); Urine Color YELLOW (Yellow); Urine Glucose NEGATIVE (Negative); Urine Protein NEGATIVE (Negative); Urine Specific Gravity <=1.005 (1.005-1.030); Urine pH 7.5 (5.0-7.0)
--- NOTE | 2021-04-19 07:10 | P.PN ---
Subjective Date of Service: 04/19/21 Chief Complaint: covid pneumonia Subjective: No new changes (Patient reports feeling about the same, continues with intermittent headache. On high flow nasal cannula and nonrebreather. Does not appear in distress. Desaturates quickly overnight, oxygen mask falls off face) Review of Systems 10-point ROS is otherwise unremarkable Physical Examination - Vital Signs Temperature: 98.7 F Blood Pressure: 148/74 Pulse: 85 Respirations: 26 Pulse Ox (%): 84 Assessment & Plan Physician Review Additional Text: Physical exam GEN: Alert, oriented HEENT: Normal conjunctiva, sclera anicteric CV: Regular rate and rhythm, no edema Pulm: mildly labored respirations on high flow nasal cannula / NRB ABD: Soft, nontender, nondistended Neuro: Normal speech, normal affect Problem list Acute respiratory failure with hypoxia, secondary to COVID-19 pneumonia Acute cystitis GERD IV steroid, vitamin supplementation. Monitor inflammatory markers. CRP worsening Pulmonary consult. Continue baricitinib Titrate oxygen as tolerated UA concerning for UTI, positive bacteriuria. start IV levaquin Transferred to floor on 04/17 Still requiring high levels of oxygen trial of tramadol for moderatesevere headache Dispo: anticipate hospitalization > 2 days Time Spent Managing Pts Care (In Minutes): 35
[2021-04-19 07:13] LABS: Urine Microscopic Reflex ORDER UMIC
[2021-04-19 08:27] LABS: Urine Bacteria >50 /HPF (<20)
--- NOTE | 2021-04-19 08:56 | RAD REPORT ---
EXAM DESCRIPTION: RAD - Chest Single View - 04/19/2021 6:29 am CLINICAL HISTORY: Hypoxia, Covid Chest pain. COMPARISON: Chest Single View dated 04/15/2021; Chest Pa And Lat (2 Views) dated 03/26/2021 FINDINGS: Portable technique limits examination quality. Moderately severe bilateral pulmonary opacities persist the unchanged since 04/15/2021. The heart is upper limit of normal in size. No displaced fractures.
[2021-04-19] MEDS: FERROUS SULFATE 142 MG PO SCH (09:00)
[2021-04-19] MEDS: ASPIRIN EC 81 MG TAB PO SCH (09:50)
[2021-04-19] MEDS: ZINC SULFATE 220 MG CAP PO SCH (09:50)
[2021-04-19] MEDS: PANTOPRAZOLE 40MG TABLET PO SCH (09:50)
[2021-04-19] MEDS: VITAMIN D 1000 UNIT TAB PO SCH (09:50)
[2021-04-19] MEDS: FENOFIBRATE 160 MG TAB PO SCH (09:51)
[2021-04-19] MEDS: ASCORBIC ACID 500 MG TABLET PO SCH ×4 (09:51→20:26)
[2021-04-19] MEDS: THIAMINE HCL 100 MG TABLET PO SCH (09:51)
[2021-04-19] MEDS: FAMOTIDINE 20 MG TAB PO SCH ×2 (09:51→20:27)
[2021-04-19] MEDS: buPROPion HCL 100 MG TAB PO SCH ×2 (09:52→20:26)
[2021-04-19] MEDS: METHYLPREDNISOLONE 125 MG INJ IV SCH ×2 (09:52→20:27)
[2021-04-19] MEDS: BARICITINIB 2 MG TABLET PO SCH (09:52)
--- NOTE | 2021-04-19 13:17 | P.PN ---
Subjective Date of Service: 04/19/21 Chief Complaint: covid pneumonia Subjective: Improving (Patient is subjectively improving still on high concentrations of oxygen) Review of Systems General: Weakness Respiratory: Shortness of Breath Physical Examination - Vital Signs Temperature: 98.6 F Blood Pressure: 135/77 Pulse: 88 Respirations: 20 Pulse Ox (%): 83 - Physical Exam General: Alert, Cooperative Assessment & Plan - Problems (Diagnosis) (1) Pneumonia due to COVID-19 virus Current Visit: Yes Status: Acute Plan: Respiratory failure on maximum therapy labs reviewed add low-dose Lasix
[2021-04-19] MEDS: FUROSEMIDE 40 MG TABLET PO SCH (13:41)
[2021-04-19] MEDS: CALCIUM CARBONATE CHEW 500MG TAB PO PRN (14:52)
[2021-04-19] MEDS: RIVAROXABAN 20 MG TABLET PO SCH (17:32)
[2021-04-19] MEDS: Levofloxacin 750mg IV 750 MG/150 ML BAG IV SCH (19:21)
[2021-04-19] MEDS: SUCRALFATE 1 GM TABLET PO SCH (20:27)
[2021-04-19] MEDS: MELATONIN 5 MG TABLET PO PRN (22:08)
[2021-04-19] MEDS: BENZONATATE 100 MG CAP PO PRN (22:38)
[2021-04-19] MEDS: LORazepam 2 MG/ML VIAL IV PRN (23:37)
[2021-04-20] MEDS: TRAMADOL HCL 50 MG TAB PO PRN ×2 (02:38→20:36)
[2021-04-20] MEDS ORDERED: KETOROLAC 30 MG/ML INJ IV ONE (02:54)
[2021-04-20 04:41] LABS: Absolute Lymphocytes (CBC) 0.4 K/uL (0.7-4.9); Basophils % 0.1 % (0-1.3); Hematocrit 36.9 % (36.0-45.0); Lymphocytes % 1.2 % (15.3-44.8); MPV 7.5 fL (7.6-11.3)
[2021-04-20 05:43] LABS: BUN Blood Urea Nitrogen 18 mg/dL (7-18); Bicarbonate 29 mmol/L (21-32); Ferritin 2326.2 ng/mL (8-388); Glucose Level 146 mg/dL (74-106); Sodium Level 139 mmol/L (136-145)
--- NOTE | 2021-04-20 06:20 | P.PN ---
Subjective Date of Service: 04/20/21 Chief Complaint: covid pneumonia Subjective: No new changes (Hypoxic when sleeping, breathing more comfortably when awake. She reports feeling better today, continues with headache, denies dysuria) Review of Systems 10-point ROS is otherwise unremarkable Physical Examination - Vital Signs Temperature: 99.4 F Blood Pressure: 187/93 Pulse: 97 Respirations: 20 Pulse Ox (%): 86 Assessment & Plan Physician Review Additional Text: Physical exam GEN: Alert, oriented HEENT: Normal conjunctiva, sclera anicteric CV: Regular rate and rhythm, no edema Pulm: mildly labored respirations on high flow nasal cannula / NRB ABD: Soft, nontender, nondistended Neuro: Normal speech, normal affect Problem list Acute respiratory failure with hypoxia, secondary to COVID-19 pneumonia Acute cystitis GERD IV steroid, vitamin supplementation. Monitor inflammatory markers. CRP worsening Pulmonary consult. Continue baricitinib Titrate oxygen as tolerated UA concerning for UTI, positive bacteriuria. start IV levaquin on 04/19 Transferred to floor on 04/17 Still requiring high levels of oxygen trial of tramadol for moderatesevere headache Dispo: anticipate hospitalization > 2 days Time Spent Managing Pts Care (In Minutes): 40
[2021-04-20] MEDS: BENZONATATE 100 MG CAP PO PRN ×3 (06:32→20:36)
[2021-04-20] MEDS: FERROUS SULFATE 142 MG PO SCH (07:35)
[2021-04-20] MEDS: FENOFIBRATE 160 MG TAB PO SCH (08:02)
[2021-04-20] MEDS: ASCORBIC ACID 500 MG TABLET PO SCH ×4 (08:02→20:37)
[2021-04-20] MEDS: THIAMINE HCL 100 MG TABLET PO SCH (08:02)
[2021-04-20] MEDS: ACETAMINOPHEN 500 MG TAB PO PRN ×2 (08:02→14:18)
[2021-04-20] MEDS: BARICITINIB 2 MG TABLET PO SCH (08:03)
[2021-04-20] MEDS: VITAMIN D 1000 UNIT TAB PO SCH (08:03)
[2021-04-20] MEDS: FUROSEMIDE 40 MG TABLET PO SCH (08:04)
[2021-04-20] MEDS: METHYLPREDNISOLONE 125 MG INJ IV SCH ×2 (08:04→20:22)
[2021-04-20] MEDS: FAMOTIDINE 20 MG TAB PO SCH ×2 (08:04→20:35)
[2021-04-20] MEDS: buPROPion HCL 100 MG TAB PO SCH ×2 (08:05→20:38)
[2021-04-20] MEDS: ZINC SULFATE 220 MG CAP PO SCH (08:05)
[2021-04-20] MEDS: ASPIRIN EC 81 MG TAB PO SCH (08:05)
--- NOTE | 2021-04-20 13:06 | P.PN ---
Subjective Date of Service: 04/20/21 Chief Complaint: covid pneumonia Patient is condition is stable she still requiring high concentrations of oxygen Review of Systems General: Weakness Respiratory: Shortness of Breath Physical Examination - Vital Signs Temperature: 98.4 F Blood Pressure: 163/77 Pulse: 87 Respirations: 24 Pulse Ox (%): 90 - Physical Exam General: Oriented x3, Cooperative Assessment & Plan - Problems (Diagnosis) (1) Pneumonia due to COVID-19 virus Current Visit: Yes Status: Acute Plan: Respiratory failure from coronavirus White count is elevated blood pressure is also elevated patient is on maximal therapy including IV levofloxacin severe Covid pneumonia
[2021-04-20] MEDS: RIVAROXABAN 20 MG TABLET PO SCH (17:00)
[2021-04-20] MEDS: Levofloxacin 750mg IV 750 MG/150 ML BAG IV SCH (17:44)
[2021-04-20] MEDS: LORazepam 2 MG/ML VIAL IV PRN (18:36)
[2021-04-20] MEDS: METOPROLOL TAR 25 MG TAB PO SCH (18:36)
[2021-04-20] MEDS: ENOXAPARIN 100 MG/ML SYR SQ SCH (18:37)
--- NOTE | 2021-04-20 19:11 | RAD REPORT ---
EXAM DESCRIPTION: Consuelo Single View04/20/2021 6:51 pm CLINICAL HISTORY: Chest pain COMPARISON: April 19, 2021 FINDINGS: No significant change in marked bilateral pulmonary opacities The heart is mildly enlarged IMPRESSION: No significant change in marked bilateral pulmonary opacities probably pneumonia
[2021-04-20] MEDS: SUCRALFATE 1 GM TABLET PO SCH (20:35)
[2021-04-20] MEDS: ATORVASTATIN 20 MG TAB PO SCH (20:38)
[2021-04-20] MEDS: MELATONIN 5 MG TABLET PO PRN (21:00)
[2021-04-20] MEDS ORDERED: LORazepam 2 MG/ML VIAL ONE (22:38)
[2021-04-20] MEDS ORDERED: LORazepam 2 MG/ML VIAL IV ONE (22:38)
[2021-04-20] MEDS: GUAIFENESIN/CODEINE 5ML UCUP PO SCH (22:56)
[2021-04-20] MEDS: Meropenem 1 GM/100 ML BAG IV SCH (23:40)
[2021-04-21] MEDS: METOPROLOL TAR 25 MG TAB PO SCH ×2 (01:59→17:03)
[2021-04-21 03:46] LABS: Absolute Lymphocytes (CBC) 0.3 K/uL (0.7-4.9); Basophils % 0.5 % (0-1.3); Hematocrit 35.6 % (36.0-45.0); Lymphocytes % 0.9 % (15.3-44.8); MPV 7.8 fL (7.6-11.3); RBC Red Blood Cell Count 3.77 M/uL (3.86-4.86)
[2021-04-21 04:31] LABS: BUN Blood Urea Nitrogen 23 mg/dL (7-18); Bicarbonate 29 mmol/L (21-32); Glucose Level 147 mg/dL (74-106); Magnesium 2.6 mg/dL (1.8-2.4); Phosphorus 4.2 mg/dL (2.5-4.9); Potassium 4.2 mmol/L (3.5-5.1); Sodium Level 141 mmol/L (136-145)
[2021-04-21 05:12] LABS: Blood Morphology Comment NOT SEEN (NOT SEEN); Platelet Estimate INCR
--- NOTE | 2021-04-21 06:21 | P.PN ---
Subjective Date of Service: 04/21/21 Chief Complaint: covid pneumonia Subjective: Worsening (More hypoxic, anxious overnight, transferred to ICU overnight. Now on BiPAP, FiO2 100%. Moderately labored) Review of Systems 10-point ROS is otherwise unremarkable Physical Examination - Vital Signs Temperature: 97.2 F Blood Pressure: 122/75 Pulse: 80 Respirations: 34 Pulse Ox (%): 94 Assessment & Plan Physician Review Additional Text: Physical exam GEN: Alert, oriented HEENT: Normal conjunctiva, sclera anicteric CV: Regular rate and rhythm, no edema Pulm: mildly labored respirations on BiPAP 100% ABD: Soft, nontender, nondistended Neuro: Normal speech, normal affect Problem list Acute respiratory failure with hypoxia, secondary to COVID-19 pneumonia Acute cystitis GERD IV steroid, vitamin supplementation. Monitor inflammatory markers. CRP worsening Pulmonary consult. Continue baricitinib Titrate oxygen as tolerated UA concerning for UTI, positive bacteriuria. started IV levaquin on 04/19, broaden to meropenem on 04/20 evening. Patient reported she has had multiple UTIs over the last year, has been treated multiple times with Levaquin, concern for resistance. Transferred to floor on 04/17, back to ICU on 04/20 Dispo: anticipate hospitalization > 2 days Guarded prognosis Time Spent Managing Pts Care (In Minutes): 35
[2021-04-21] MEDS: Meropenem 1 GM/100 ML BAG IV SCH ×3 (06:25→22:30)
[2021-04-21] MEDS: LORazepam 2 MG/ML VIAL IV PRN (06:53)
[2021-04-21] MEDS: PANTOPRAZOLE 40MG TABLET PO SCH (07:30)
[2021-04-21] MEDS: FERROUS SULFATE 142 MG PO SCH (08:05)
[2021-04-21] MEDS: ASPIRIN EC 81 MG TAB PO SCH (08:05)
[2021-04-21] MEDS: FUROSEMIDE 40 MG TABLET PO SCH (08:07)
[2021-04-21] MEDS: ENOXAPARIN 100 MG/ML SYR SQ SCH ×2 (08:08→20:27)
[2021-04-21] MEDS: FENOFIBRATE 160 MG TAB PO SCH (08:09)
[2021-04-21] MEDS: METHYLPREDNISOLONE 125 MG INJ IV SCH ×2 (08:09→20:27)
[2021-04-21] MEDS: THIAMINE HCL 100 MG TABLET PO SCH (08:09)
[2021-04-21] MEDS: GUAIFENESIN/CODEINE 5ML UCUP PO SCH ×2 (08:09→20:20)
[2021-04-21] MEDS: BARICITINIB 2 MG TABLET PO SCH (08:09)
[2021-04-21] MEDS: FAMOTIDINE 20 MG TAB PO SCH ×2 (08:09→20:20)
[2021-04-21] MEDS: buPROPion HCL 100 MG TAB PO SCH ×2 (08:10→20:20)
[2021-04-21] MEDS: ASCORBIC ACID 500 MG TABLET PO SCH ×4 (08:10→20:20)
[2021-04-21] MEDS: ZINC SULFATE 220 MG CAP PO SCH (08:10)
[2021-04-21] MEDS: VITAMIN D 1000 UNIT TAB PO SCH (08:10)
--- NOTE | 2021-04-21 09:24 | RAD REPORT ---
EXAM DESCRIPTION: RAD - Abdomen 1 View (KUB) - 04/21/2021 9:14 am CLINICAL HISTORY: naso gastric placement COMPARISON: No comparisons FINDINGS: Nonobstructive bowel gas pattern. No acute osseous abnormality.Widespread airspace disease .No abnormal calcifications. Weighted feeding tube tip overlies the distal stomach. IMPRESSION: Weighted feeding tube tip overlies the distal stomach.
--- NOTE | 2021-04-21 11:43 | CON ---
Reason For Consultation: I was consulted for chest pain. History Of Present Illness: Ms. Moise is a 60-year-old woman without past medical history who came with COVID pneumonia, very hypoxic yesterday, was transferred. She is on vent setting at 100%. Her O2 saturation is 95%. She is on BiPAP, developed a sharp stabbing chest pain yesterday with hypoxia , slightly elevated troponin. EKG showed no acute changes. She has nonspecific changes. She is not having any pain today, still complaining of shortness of breath. She is on treatment for dyslipidem ia, high blood pressure. She is on antibiotics, steroid. She is on Lasix. She is on Xarelto. Past Medical History: Negative. Allergies: INCLUDE NITROFURANTOIN. Medications: At home were none. Review of Systems: Negative. Social History: Negative. Family History: Negative. Physical Examination: Vital Signs: Stable. Afebrile. HEENT: Negative. Neck: Supple with no bruit. Chest: Reveals rales at both bases. Cardiac: Revealed regular rhythm and rate. No murmurs, gallops, or rubs. Abdomen: Benign, but obese. Extremities: Revealed no edema, clubbing, or cyanosis. Diagnostic Data: Her white count was 30,000. Creatinine is 0.52. Troponin 1.04. Impression And Plan: Elevated troponin. Atypical chest pain secondary to COVID pneumonia and demand ischemia. Echocardiogram is pending. May need an outpatient Lexiscan in about a month or so. No p sebastian for heart catheterization at this point. Continue her present regimen which include aspirin, Tri cor, Lipitor, metformin, antibiotics, steroids, Lasix and I would definitely continue her Xarelto. I have discussed the case further with Dr. Griffin. ROC/MAGDA Voice ID: [id number] Report ID: [id number]
[2021-04-21] MEDS: MORPHINE 2 MG/ML SYR IV PRN ×2 (12:15→19:10)
--- NOTE | 2021-04-21 16:17 | RAD REPORT ---
EXAM DESCRIPTION: RAD - Chest Single View - 04/21/2021 9:14 am CLINICAL HISTORY: SOB, hypoxia, covid COMPARISON: Chest Single View dated 04/20/2021; Chest Single View dated 04/19/2021; Chest Single View da kobi 04/15/2021; Chest Pa And Lat (2 Views) dated 03/26/2021 FINDINGS: Lines: Enteric tube goes below the diaphragm. The tip is not visualized. Lungs: Overall similar widespread bilateral airspace disease. Pleural: No significant pleural effusions or pneumothorax. Cardiac: Unchanged cardiac size per Bones: No acute fractures. Other: IMPRESSION: Widespread bilateral airspace disease similar to 04/20/2021 and compatible with multifoc al pneumonia. Interval placement of an enteric tube which goes below the diaphragm, the tip not visua lized.
--- NOTE | 2021-04-21 18:33 | RAD REPORT ---
EXAM DESCRIPTION: RAD - Abdomen 1 View (KUB) - 04/21/2021 9:43 am CLINICAL HISTORY: naso gastric placement COMPARISON: Abdomen 1 View (KUB) dated 04/21/2021 FINDINGS: The weighted feeding tube tip overlies the stomach. Widespread airspace disease again note d. The bowel gas pattern is nonobstructive per IMPRESSION: Feeding tube tip overlies the stomach. If a gastric position is desired, then the positi oning is good. If a transpyloric position is needed then the tube will need to be repositioned.
--- NOTE | 2021-04-21 18:57 | P.PN ---
Subjective Date of Service: 04/21/21 Chief Complaint: covid pneumonia Stabelon BIPAP 80% / WBC elevated Review of Systems is unable to be obtained Physical Examination - Vital Signs Temperature: 97.6 F Blood Pressure: 136/73 Pulse: 101 Respirations: 27 Pulse Ox (%): 94 Assessment & Plan - Problems (Diagnosis) (1) Pneumonia due to COVID-19 virus Current Visit: Yes Status: Acute Plan: Resp failure/ Stable on Fio2 80%.Started on tube feeds/ on max TX/ Diffuse Bilateral penumonia/ Agree with merem add Diflucan/ GNEG rods in urine
[2021-04-21] MEDS: FLUCONAZOLE 400 MG IVPB 400 MG/200 ML BAG IV SCH (19:00)
[2021-04-21] MEDS: SUCRALFATE 1 GM TABLET PO SCH (20:20)
[2021-04-21] MEDS: ATORVASTATIN 20 MG TAB PO SCH (20:20)
[2021-04-21] MEDS: HYDROMORPHONE HCL 1 MG/ML INJ IV PRN (21:42)
[2021-04-21] MEDS ORDERED: HYDROMORPHONE HCL 2 MG/ML inj ONE (22:02)
[2021-04-22] MEDS: MORPHINE 2 MG/ML SYR IV PRN (01:30)
[2021-04-22] MEDS ORDERED: HYDROMORPHONE HCL 2 MG/ML inj ONE (03:29)
[2021-04-22 05:04] LABS: Absolute Lymphocytes (CBC) 0.2 K/uL (0.7-4.9); Basophils % 0.3 % (0-1.3); Hematocrit 34.1 % (36.0-45.0); Lymphocytes % 0.8 % (15.3-44.8); MPV 7.8 fL (7.6-11.3); RBC Red Blood Cell Count 3.61 M/uL (3.86-4.86)
[2021-04-22 05:47] LABS: BUN Blood Urea Nitrogen 33 mg/dL (7-18); Bicarbonate 29 mmol/L (21-32); Ferritin 2351.8 ng/mL (8-388); Glucose Level 141 mg/dL (74-106); Potassium 4.4 mmol/L (3.5-5.1); Sodium Level 143 mmol/L (136-145)
[2021-04-22] MEDS: METOPROLOL TAR 25 MG TAB PO SCH ×2 (05:49→17:22)
[2021-04-22] MEDS: Meropenem 1 GM/100 ML BAG IV SCH ×2 (05:50→16:34)
--- NOTE | 2021-04-22 06:00 | P.PN ---
Subjective Date of Service: 04/22/21 Chief Complaint: covid pneumonia Subjective: Improving (feeling better today, on 90% FIO2 BIPAP, dobhoff placed yesterday, anxiety improved with dilaudid, benzo didn't help much) Review of Systems 10-point ROS is otherwise unremarkable Physical Examination - Vital Signs Temperature: 97.3 F Blood Pressure: 112/61 Pulse: 91 Respirations: 18 Pulse Ox (%): 88 Assessment & Plan Physician Review Additional Text: Physical exam GEN: Alert, oriented HEENT: Normal conjunctiva, sclera anicteric, BIPAP in place CV: Regular rate and rhythm, no edema Pulm: moderate labored respirations on BiPAP 90% ABD: Soft, nontender, nondistended Neuro: Moves all extremities Problem list Acute respiratory failure with hypoxia, secondary to COVID-19 pneumonia Acute cystitis NSTEMI GERD IV steroid, vitamin supplementation. Monitor inflammatory markers. Pulmonary consulted. Continue baricitinib Titrate oxygen as tolerated UA concerning for UTI, positive bacteriuria. started IV levaquin on 04/19, broadened to meropenem on 04/20 evening. Patient reported she has had multiple UTIs over the last year, has been treated multiple times with Levaquin, concern for resistance. Ur Cx: GNR, f/u sensitivities Transferred to floor on 04/17, back to ICU on 04/20 lovenox due to NSTEMI and inability to take PO, trop elevated and downtrending now, Cardio consulted and echo ordered dobhoff placed, pt improved, can transition back to xarelto PO Dispo: anticipate hospitalization > 2 days Guarded prognosis Time Spent Managing Pts Care (In Minutes): 45
[2021-04-22] MEDS: GUAIFENESIN/CODEINE 5ML UCUP PO SCH ×2 (08:28→20:00)
[2021-04-22] MEDS: FUROSEMIDE 40 MG TABLET PO SCH (08:28)
[2021-04-22] MEDS: VITAMIN D 1000 UNIT TAB PO SCH (08:28)
[2021-04-22] MEDS: FAMOTIDINE 20 MG TAB PO SCH ×2 (08:28→20:01)
[2021-04-22] MEDS: ASCORBIC ACID 500 MG TABLET PO SCH ×4 (08:28→20:01)
[2021-04-22] MEDS: ASPIRIN EC 81 MG TAB PO SCH (08:28)
[2021-04-22] MEDS: PANTOPRAZOLE 40MG TABLET PO SCH (08:28)
[2021-04-22] MEDS: ZINC SULFATE 220 MG CAP PO SCH (08:29)
[2021-04-22] MEDS: METHYLPREDNISOLONE 125 MG INJ IV SCH ×2 (08:29→20:00)
[2021-04-22] MEDS: FERROUS SULFATE 142 MG PO SCH (08:29)
[2021-04-22] MEDS: THIAMINE HCL 100 MG TABLET PO SCH (08:31)
[2021-04-22] MEDS: BARICITINIB 2 MG TABLET PO SCH (08:31)
[2021-04-22] MEDS: buPROPion HCL 100 MG TAB PO SCH ×2 (08:31→20:00)
[2021-04-22] MEDS: ENOXAPARIN 100 MG/ML SYR SQ SCH (09:55)
[2021-04-22] MEDS: FENOFIBRATE 160 MG TAB PO SCH (09:55)
--- NOTE | 2021-04-22 10:45 | P.PN ---
Subjective Date of Service: 04/22/21 Chief Complaint: covid pneumonia Patient is still very hypoxic on 90% FiO2 and BiPAP white count is still elevated but declining Review of Systems is unable to be obtained Physical Examination - Vital Signs Temperature: 98.6 F Blood Pressure: 136/79 Pulse: 95 Respirations: 21 Pulse Ox (%): 86 - Physical Exam General: Unresponsive Assessment & Plan - Problems (Diagnosis) (1) Pneumonia due to COVID-19 virus Current Visit: Yes Status: Acute Plan: Respiratory failure still very hypoxic white count is elevated but declining renal function satisfactory procalcitonin level is negative troponins mildly elevated on maximum therapy changed to p.o. Xarelto
[2021-04-22] MEDS: HYDROMORPHONE HCL 1 MG/ML INJ IV PRN ×3 (12:17→22:30)
[2021-04-22] MEDS ORDERED: VITAL HP 1,000 ML BOT RTH SCH (14:00)
[2021-04-22] MEDS: RIVAROXABAN 20 MG TABLET PO SCH (16:35)
[2021-04-22] MEDS ORDERED: Meropenem 1 GM/100 ML BAG IV SCH (17:00)
--- NOTE | 2021-04-22 17:00 | EKG ---
Test Date: 2021-04-20 Test Time: 17:24:20 Arts Administrator Or Manager: CHRIST MEASUREMENT RESULTS: Intervals: Rate: 91 PA: 164 QRSD: 84 QT: 362 QTc: 445 [place]: P: 118 PA: 164 QRS: 110 T: 134 INTERPRETIVE STATEMENTS: Suspect arm lead reversal, interpretation assumes no reversal Normal sinus rhythm nst Consider right ventricular involvement in acute inferior infarct Abnormal ECG Compared to ECG 04/15/2021 00:18:42 [facility] Electronically Signed On 04-22-21 16:56:50 CDT by Julio Washington
[2021-04-22] MEDS: FLUCONAZOLE 400 MG IVPB 400 MG/200 ML BAG IV SCH (18:01)
[2021-04-23] MEDS: Meropenem 1 GM/100 ML BAG IV SCH ×2 (00:34→08:57)
[2021-04-23] MEDS: LORazepam 2 MG/ML VIAL IV PRN ×3 (01:31→19:27)
[2021-04-23] MEDS: HYDROMORPHONE HCL 1 MG/ML INJ IV PRN ×3 (05:17→21:00)
[2021-04-23] MEDS: METOPROLOL TAR 25 MG TAB PO SCH ×2 (05:17→16:16)
[2021-04-23 06:06] LABS: Absolute Lymphocytes (CBC) 0.3 K/uL (0.7-4.9)
[2021-04-23 06:15] LABS: Basophils % 0.1 % (0-1.3); Lymphocytes % 1.4 % (15.3-44.8); MPV 8.4 fL (7.6-11.3); RBC Red Blood Cell Count 3.77 M/uL (3.86-4.86)
[2021-04-23 06:23] LABS: BUN Blood Urea Nitrogen 47 mg/dL (7-18); Bicarbonate 31 mmol/L (21-32); Glucose Level 177 mg/dL (74-106); Magnesium 2.9 mg/dL (1.8-2.4); Potassium 4.3 mmol/L (3.5-5.1); Sodium Level 144 mmol/L (136-145)
[2021-04-23 06:26] LABS: Ferritin > 2000.0 ng/mL (8-388)
--- NOTE | 2021-04-23 07:54 | RAD REPORT ---
EXAM DESCRIPTION: RAD - Chest Single View - 04/23/2021 5:50 am CLINICAL HISTORY: hypoxia, COVID COMPARISON: Abdomen 1 View (KUB) dated 04/21/2021; Abdomen 1 View (KUB) dated 04/21/2021; Chest Single V iew dated 04/21/2021; Chest Single View dated 04/20/2021 FINDINGS: Lines: Weighted feeding tube courses below the diaphragm Lungs: Similar widespread bilateral airspace disease. Pleural: No significant pleural effusions or pneumothorax. Cardiac: Cardiomegaly Bones: No acute fractures. Other: IMPRESSION: Unchanged widespread bilateral airspace disease consistent with multifocal pneumonia, pr esumably Covid-19. Enteric tube below the diaphragm.
[2021-04-23] MEDS: GUAIFENESIN/CODEINE 5ML UCUP PO SCH ×2 (08:54→20:10)
[2021-04-23] MEDS: ASPIRIN EC 81 MG TAB PO SCH (08:54)
[2021-04-23] MEDS: METHYLPREDNISOLONE 125 MG INJ IV SCH ×2 (08:54→20:10)
[2021-04-23] MEDS: FENOFIBRATE 160 MG TAB PO SCH (08:55)
[2021-04-23] MEDS: FAMOTIDINE 20 MG TAB PO SCH ×2 (08:55→20:10)
[2021-04-23] MEDS: ZINC SULFATE 220 MG CAP PO SCH (08:55)
[2021-04-23] MEDS: VITAMIN D 1000 UNIT TAB PO SCH (08:55)
[2021-04-23] MEDS: ASCORBIC ACID 500 MG TABLET PO SCH ×4 (08:55→20:10)
[2021-04-23] MEDS: THIAMINE HCL 100 MG TABLET PO SCH (08:55)
[2021-04-23] MEDS: FUROSEMIDE 40 MG TABLET PO SCH (08:55)
[2021-04-23] MEDS: FERROUS SULFATE 142 MG PO SCH (08:56)
[2021-04-23] MEDS: buPROPion HCL 100 MG TAB PO SCH ×2 (08:57→20:10)
[2021-04-23] MEDS: BARICITINIB 2 MG TABLET PO SCH (08:58)
[2021-04-23 10:26] LABS: Blood Morphology Comment NOT SEEN (NOT SEEN); Platelet Estimate ADEQ
--- NOTE | 2021-04-23 11:56 | P.PN ---
Subjective Date of Service: 04/23/21 Chief Complaint: covid pneumonia No change in patient's care no change in patient's condition still requiring high concentration of oxygen vital signs otherwise stable white count is declining Review of Systems is unable to be obtained Physical Examination - Vital Signs Temperature: 96.4 F Blood Pressure: 145/83 Pulse: 95 Respirations: 24 Pulse Ox (%): 94 - Physical Exam General: Alert, Cooperative Assessment & Plan - Problems (Diagnosis) (1) Pneumonia due to COVID-19 virus Current Visit: Yes Status: Acute Plan: Respiratory failure respiratory failure chest x-ray no change still on high concentrations of oxygen white count has declined to 20,000 labs reviewed BUN is mildly elevated ferritin is over 2000 C-reactive protein is very high on Therapy on maximal therapy with steroids and Barcitinib
--- NOTE | 2021-04-23 14:10 | P.PN ---
Subjective Date of Service: 04/23/21 Chief Complaint: covid pneumonia Patient remain on BiPAP. No major changes from yesterday. Physical Examination - Vital Signs Temperature: 98.6 F Blood Pressure: 114/67 Pulse: 82 Respirations: 19 Pulse Ox (%): 89 Assessment And Plan Physician Review Additional Text: Physical exam GEN: Alert, oriented HEENT: Normal conjunctiva, sclera anicteric, BIPAP in place CV: Regular rate and rhythm, no edema Pulm: moderate labored respirations on BiPAP 90% ABD: Soft, nontender, nondistended Neuro: Moves all extremities Problem list Acute respiratory failure with hypoxia, secondary to COVID-19 pneumonia Acute cystitis NSTEMI GERD Continue IV steroid, vitamin supplementation. Pulmonary is following. Continue baricitinib. Titrate oxygen as tolerated Urine culture: [place]-sensitive E. coli. CFhange antibiotics to IV Rocephin. Transferred to floor on 04/17, back to ICU on 04/20 lovenox due to NSTEMI and inability to take PO, trop elevated and downtrending now, seen by cardiology. Echo is pending. Dobhoff placed for feeding. Wean oxygen as tolerated. Guarded prognosis
--- NOTE | 2021-04-23 15:46 | PN ---
Subjective: Ms. Moise is in the hospital with hypoxia, elevated troponin, COVID, atypical chest pa in. We have an echocardiogram pending for 04/23/2021. She has improved oxygenation while rhythm sta ys normal. She is not having any further chest pain. Troponin remains elevated. We will see what h er echocardiogram shows before making further decisions. She will eventually need as an outpatient M PI, but we will plan that for about a month from now. ROC/MAGDA Voice ID: [id number] Report ID: [id number]
[2021-04-23] MEDS: RIVAROXABAN 20 MG TABLET PO SCH (16:16)
[2021-04-23] MEDS: FLUCONAZOLE 400 MG IVPB 400 MG/200 ML BAG IV SCH (19:00)
[2021-04-24] MEDS: HYDROMORPHONE HCL 1 MG/ML INJ IV PRN ×3 (01:39→19:59)
[2021-04-24] MEDS: MORPHINE 2 MG/ML SYR IV PRN (03:15)
[2021-04-24 05:01] LABS: Absolute Lymphocytes (CBC) 0.4 K/uL (0.7-4.9); Basophils % 0.1 % (0-1.3); Hematocrit 37.8 % (36.0-45.0); Lymphocytes % 1.2 % (15.3-44.8); MPV 8.2 fL (7.6-11.3); RBC Red Blood Cell Count 3.99 M/uL (3.86-4.86)
[2021-04-24 05:16] LABS: BUN Blood Urea Nitrogen 50 mg/dL (7-18); Bicarbonate 33 mmol/L (21-32); Glucose Level 177 mg/dL (74-106); Potassium 4.3 mmol/L (3.5-5.1); Sodium Level 146 mmol/L (136-145)
[2021-04-24] MEDS: METOPROLOL TAR 25 MG TAB PO SCH ×2 (05:39→17:32)
[2021-04-24 06:38] LABS: Blood Morphology Comment NOT SEEN (NOT SEEN); Platelet Estimate INCR
--- NOTE | 2021-04-24 07:20 | ECHO ---
HEIGHT: 5 ft 4 in WEIGHT: 215 lb 0 oz DATE OF STUDY: 04/23/[address]: Julio Washington MD 2-DIMENSIONAL: YES M.MODE: YES DOPPLER: YES COLOR FLOW: YES TDS: PORTABLE: YES DEFINITY: BUBBLE STUDY: DIAGNOSIS: CHEST PAIN CARDIAC HISTORY: CATHERIZATION: NO SURGERY: NO PROSTHETIC VALVE: NO PACEMAKER: NO MEASUREMENTS (cm) DIASTOLIC (NORMALS) SYSTOLIC (NORMALS) IVSd 1.0 (0.6-1.2) LA Diam 2.7 (1.9-4.0) LVEF 69% LVIDd 4.2 (3.5-5.7) LVIDs 2.6 (2.0-3.5) %FS 38% LVPWd 1.1 (0.6-1.2) Ao Diam 2.3 (2.0-3.7) 2 DIMENSIONAL ASSESSMENT: RIGHT ATRIUM: LEFT ATRIUM: RIGHT VENTRICLE: LEFT VENTRICLE: TRICUSPID VALVE: MITRAL VALVE: PULMONIC VALVE: AORTIC VALVE: PERICARDIAL EFFUSION: AORTIC ROOT: LEFT VENTRICULAR WALL MOTION: DOPPLER/COLOR FLOW: COMMENTS: NORMAL 2-DIMENSIONAL ECHOCARDIOGRAM WITH DOPPLER. NO WALL MOTION ABNORMALITY. NO EFFUSION. TECHNOLOGIST: BLAZE HERR
[2021-04-24] MEDS: FERROUS SULFATE 142 MG PO SCH (08:13)
[2021-04-24] MEDS: FAMOTIDINE 20 MG TAB PO SCH ×2 (09:00→20:02)
[2021-04-24] MEDS: FENOFIBRATE 160 MG TAB PO SCH (11:01)
[2021-04-24] MEDS: FUROSEMIDE 40 MG TABLET PO SCH (11:01)
[2021-04-24] MEDS: GUAIFENESIN/CODEINE 5ML UCUP PO SCH ×2 (11:01→20:01)
[2021-04-24] MEDS: ZINC SULFATE 220 MG CAP PO SCH (11:01)
[2021-04-24] MEDS: VITAMIN D 1000 UNIT TAB PO SCH (11:01)
[2021-04-24] MEDS: ASCORBIC ACID 500 MG TABLET PO SCH ×4 (11:01→20:02)
[2021-04-24] MEDS: CEFTRIAXONE/SWI 1gm 1 GM/10 ML SYR IV SCH (11:03)
[2021-04-24] MEDS: THIAMINE HCL 100 MG TABLET PO SCH (11:03)
[2021-04-24] MEDS: ASPIRIN EC 81 MG TAB PO SCH (11:03)
[2021-04-24] MEDS: METHYLPREDNISOLONE 125 MG INJ IV SCH ×2 (11:04→20:01)
[2021-04-24] MEDS: LORazepam 2 MG/ML VIAL IV PRN (11:04)
[2021-04-24] MEDS: buPROPion HCL 100 MG TAB PO SCH ×2 (11:05→20:03)
[2021-04-24] MEDS: BARICITINIB 2 MG TABLET PO SCH (11:05)
--- NOTE | 2021-04-24 11:28 | P.PN ---
Subjective Date of Service: 04/24/21 Chief Complaint: covid pneumonia NC high concentraion of Fio2 Review of Systems is unable to be obtained Physical Examination - Vital Signs Temperature: 97.5 F Blood Pressure: 117/88 Pulse: 90 Respirations: 29 Pulse Ox (%): 29 - Physical Exam General: Alert, Cooperative, Moderate distress Assessment & Plan - Problems (Diagnosis) (1) Pneumonia due to COVID-19 virus Current Visit: Yes Status: Acute Plan: Resp failure NC/ WBC elevated change to Levaquin Dc rocepin/CXRY nc
--- NOTE | 2021-04-24 13:14 | P.PN ---
Subjective Date of Service: 04/24/21 Chief Complaint: covid pneumonia Patient alternating between BiPAP and high-flow oxygen. She has no new complain. Physical Examination - Vital Signs Temperature: 97.5 F Blood Pressure: 117/88 Pulse: 90 Respirations: 29 Pulse Ox (%): 29 - Physical Exam General: Alert, Oriented x3 HEENT: Other (BiPAP) Respiratory: Other (Nonlabored breathing) Cardiovascular: Regular rate/rhythm, Normal S1 S2 Gastrointestinal: Soft and benign, Non-distended Musculoskeletal: No swelling Neurological: Other (No focal motor deficit) Assessment And Plan Physician Review Additional Text: Problem list Acute respiratory failure with hypoxia, secondary to COVID-19 pneumonia Acute cystitis NSTEMI GERD Continue IV steroid, vitamin supplementation. Pulmonary is following. Continue baricitinib. Weaned off BiPAP as tolerated. Urine culture: [place]-sensitive E. coli. Continue IV Rocephin. NG-tube inserted for feeding Transferred to floor on 04/17, back to ICU on 04/20 Echo is unremarkable. Started on Xarelto per pulmonary Guarded prognosis
[2021-04-24] MEDS: Levofloxacin500mg IV 500 MG/100 ML BAG IV SCH (13:16)
[2021-04-24] MEDS: RIVAROXABAN 20 MG TABLET PO SCH (17:31)
[2021-04-24] MEDS: FLUCONAZOLE 400 MG IVPB 400 MG/200 ML BAG IV SCH (20:00)
[2021-04-25] MEDS: HYDROMORPHONE HCL 1 MG/ML INJ IV PRN ×4 (00:41→20:22)
[2021-04-25] MEDS: LORazepam 2 MG/ML VIAL IV PRN ×3 (01:47→23:24)
[2021-04-25 05:07] LABS: Absolute Lymphocytes (CBC) 1.1 K/uL (0.7-4.9); Basophils % 0.2 % (0-1.3); Hematocrit 35.6 % (36.0-45.0); Lymphocytes % 3.5 % (15.3-44.8); MPV 8.3 fL (7.6-11.3); RBC Red Blood Cell Count 3.74 M/uL (3.86-4.86)
[2021-04-25 05:26] LABS: ALT/SGPT 24 U/L (12-78); AST/SGOT 21 U/L (15-37); Albumin 2.3 g/dL (3.4-5.0); Alkaline Phosphatase 193 U/L (45-117); BUN Blood Urea Nitrogen 51 mg/dL (7-18); Bicarbonate 33 mmol/L (21-32); Bilirubin Total 0.6 mg/dL (0.2-1.0); Glucose Level 145 mg/dL (74-106); Protein, Total 5.8 g/dL (6.4-8.2); Sodium Level 146 mmol/L (136-145)
[2021-04-25] MEDS: METOPROLOL TAR 25 MG TAB PO SCH ×2 (06:02→16:29)
[2021-04-25] MEDS: GUAIFENESIN/CODEINE 5ML UCUP PO SCH ×2 (09:00→20:10)
[2021-04-25] MEDS: buPROPion HCL 100 MG TAB PO SCH ×2 (09:00→20:10)
[2021-04-25] MEDS: FERROUS SULFATE 142 MG PO SCH (09:00)
[2021-04-25] MEDS: METHYLPREDNISOLONE 125 MG INJ IV SCH (09:52)
[2021-04-25] MEDS: CEFTRIAXONE/SWI 1gm 1 GM/10 ML SYR IV SCH (09:52)
[2021-04-25] MEDS: VITAMIN D 1000 UNIT TAB PO SCH (11:45)
[2021-04-25] MEDS: THIAMINE HCL 100 MG TABLET PO SCH (11:46)
[2021-04-25] MEDS: ASPIRIN EC 81 MG TAB PO SCH (11:46)
[2021-04-25] MEDS: POLYETHYL GLY 3350 17 GM/DOSE PO PRN (11:46)
[2021-04-25] MEDS: ASCORBIC ACID 500 MG TABLET PO SCH ×4 (11:46→20:11)
[2021-04-25] MEDS: FENOFIBRATE 160 MG TAB PO SCH (11:46)
[2021-04-25] MEDS: ZINC SULFATE 220 MG CAP PO SCH (11:46)
[2021-04-25] MEDS: FUROSEMIDE 40 MG TABLET PO SCH (11:47)
[2021-04-25] MEDS: FAMOTIDINE 20 MG TAB PO SCH ×2 (11:47→20:10)
[2021-04-25] MEDS: BARICITINIB 2 MG TABLET PO SCH (11:48)
[2021-04-25] MEDS: Levofloxacin500mg IV 500 MG/100 ML BAG IV SCH (12:00)
--- NOTE | 2021-04-25 12:18 | P.PN ---
Subjective Date of Service: 04/25/21 Chief Complaint: covid pneumonia NC stil requiring high concentrationof Fio2 . Delirious Review of Systems is unable to be obtained Physical Examination - Vital Signs Temperature: 98.2 F Blood Pressure: 137/53 Pulse: 101 Respirations: 32 Pulse Ox (%): 89 - Physical Exam General: Unresponsive Assessment & Plan - Problems (Diagnosis) (1) Pneumonia due to COVID-19 virus Current Visit: Yes Status: Acute Plan: Resp failure/ WBC is declining/ mild hypernatremia Dc Lasix/ on 100% %Fio2/CXRY Bialteral pulminfiltrates
--- NOTE | 2021-04-25 13:04 | P.PN ---
Subjective Date of Service: 04/25/21 Chief Complaint: covid pneumonia Patient alternating between BiPAP and high-flow oxygen. No changes from yesterday. NG-tube inserted for feeding. Physical Examination - Vital Signs Temperature: 98.2 F Blood Pressure: 137/53 Pulse: 101 Respirations: 32 Pulse Ox (%): 89 - Physical Exam General: Alert, In no apparent distress HEENT: Other (CPAP) Respiratory: Other (Nonlabored breathing) Cardiovascular: Normal S1 S2, Other (Tachycardia) Gastrointestinal: Soft and benign, Non-distended Musculoskeletal: No swelling Integumentary: No rashes Neurological: Normal strength at 5/5 x4 extr Assessment And Plan Physician Review Additional Text: Problem list Acute respiratory failure with hypoxia, secondary to COVID-19 pneumonia Acute cystitis NSTEMI GERD Continue IV steroid, vitamin supplementation. Pulmonary is following. Continue baricitinib. Weaned off BiPAP as tolerated. Urine culture: [place]-sensitive E. coli. Continue IV Rocephin. Patient to complete 5 days of treatment. NG-tube inserted for feeding Transferred to floor on 04/17, back to ICU on 04/20 Echo is unremarkable. On Xarelto Guarded prognosis
[2021-04-25] MEDS: HALOPERIDOL LACT 5 MG/ML INJ IV PRN ×2 (14:40→21:30)
--- NOTE | 2021-04-25 15:49 | RAD REPORT ---
EXAM DESCRIPTION: RAD - Abdomen 1 View (KUB) - 04/25/2021 3:41 pm CLINICAL HISTORY: NG tube placement COMPARISON: Abdomen 1 View (KUB) dated 04/21/2021; Abdomen 1 View (KUB) dated 04/21/2021 FINDINGS: Nonobstructive bowel gas pattern. No acute osseous abnormality.Widespread airspace disease .No abnormal calcifications. The NG tube tip overlies the stomach IMPRESSION: Nonobstructive bowel gas pattern. The NG tube tip overlies the stomach.
[2021-04-25] MEDS: RIVAROXABAN 20 MG TABLET PO SCH (16:29)
[2021-04-25] MEDS: FLUCONAZOLE 400 MG IVPB 400 MG/200 ML BAG IV SCH (20:10)
[2021-04-25] MEDS: METHYLPREDNISOLONE 40 MG INJ IV SCH (20:10)
[2021-04-25] MEDS ORDERED: WATER FOR INJ,STERILE 10 ML IM PRN (23:47)
[2021-04-25] MEDS ORDERED: ZIPRASIDONE MESYLA 20 MG/VIAL IM ONE (23:47)
[2021-04-26] MEDS ORDERED: RSI MEDICATION KIT IV ONE (00:06)
[2021-04-26] MEDS ORDERED: ZIPRASIDONE MESYLA 20 MG/VIAL IM ONE (00:09)
[2021-04-26] MEDS ORDERED: WATER FOR INJ,STERILE 10 ML ONE (00:09)
[2021-04-26] MEDS: HYDROMORPHONE HCL 1 MG/ML INJ IV PRN ×2 (00:17→03:55)
[2021-04-26] MEDS: HALOPERIDOL LACT 5 MG/ML INJ IV PRN (02:53)
[2021-04-26 05:28] LABS: Absolute Lymphocytes (CBC) 0.4 K/uL (0.7-4.9); Basophils % 0.2 % (0-1.3); Hematocrit 33.9 % (36.0-45.0); Lymphocytes % 1.6 % (15.3-44.8); MPV 8.6 fL (7.6-11.3); RBC Red Blood Cell Count 3.51 M/uL (3.86-4.86)
[2021-04-26] MEDS: LORazepam 2 MG/ML VIAL IV PRN (06:04)
[2021-04-26] MEDS: METOPROLOL TAR 25 MG TAB PO SCH ×2 (06:05→17:29)
--- NOTE | 2021-04-26 07:13 | RAD REPORT ---
EXAM DESCRIPTION: RAD - Chest Single View - 04/26/2021 6:05 am CLINICAL HISTORY: resp failure COMPARISON: Abdomen 1 View (KUB) dated 04/25/2021; Chest Single View dated 04/23/2021; Abdomen 1 View (K UB) dated 04/21/2021; Abdomen 1 View (KUB) dated 04/21/2021 FINDINGS: Lines: Enteric tube below the diaphragm. Lungs: Severe bilateral widespread airspace disease is similar to 04/23/2021. Pleural: No significant pleural effusions or pneumothorax. Cardiac: Mild cardiomegaly. Bones: No acute fractures. Other: IMPRESSION: Similar severe bilateral airspace disease consistent with multifocal pneumonia.
[2021-04-26 07:42] LABS: ALT/SGPT 23 U/L (12-78); AST/SGOT 29 U/L (15-37); Albumin 2.4 g/dL (3.4-5.0); Alkaline Phosphatase 180 U/L (45-117); BUN Blood Urea Nitrogen 44 mg/dL (7-18); Bicarbonate 29 mmol/L (21-32); Bilirubin Total 0.7 mg/dL (0.2-1.0); Glucose Level 133 mg/dL (74-106); Potassium 5.1 mmol/L (3.5-5.1); Protein, Total 5.8 g/dL (6.4-8.2); Sodium Level 146 mmol/L (136-145)
[2021-04-26] MEDS: ASPIRIN EC 81 MG TAB PO SCH (07:44)
[2021-04-26] MEDS: THIAMINE HCL 100 MG TABLET PO SCH (07:45)
[2021-04-26] MEDS: FENOFIBRATE 160 MG TAB PO SCH (07:46)
[2021-04-26] MEDS: ZINC SULFATE 220 MG CAP PO SCH (07:46)
[2021-04-26] MEDS: FAMOTIDINE 20 MG TAB PO SCH ×2 (07:46→21:41)
[2021-04-26] MEDS: METHYLPREDNISOLONE 40 MG INJ IV SCH (07:47)
[2021-04-26] MEDS: buPROPion HCL 100 MG TAB PO SCH ×2 (07:48→21:42)
[2021-04-26] MEDS: BARICITINIB 2 MG TABLET PO SCH (07:51)
[2021-04-26] MEDS: CEFTRIAXONE/SWI 1gm 1 GM/10 ML SYR IV SCH (07:51)
[2021-04-26] MEDS: VITAMIN D 1000 UNIT TAB PO SCH (08:03)
[2021-04-26] MEDS: ASCORBIC ACID 500 MG TABLET PO SCH ×4 (08:03→21:41)
[2021-04-26] MEDS ORDERED: LORazepam 2 MG/ML VIAL IV ONE (08:05)
[2021-04-26] MEDS ORDERED: METOPROLOL TARTRATE 5 MG/5 ML INJ IV STA (08:14)
[2021-04-26] MEDS: GUAIFENESIN/CODEINE 5ML UCUP PO SCH ×2 (08:53→20:15)
[2021-04-26] MEDS: FERROUS SULFATE 142 MG PO SCH (09:00)
[2021-04-26] MEDS ORDERED: SUCCINYLCHOLINE 20 MG/ML (10 ML) IV ONE (10:31)
[2021-04-26] MEDS ORDERED: propofoL 500 MG/50 ML ML IV ONE ×3 (10:31→13:29)
[2021-04-26] MEDS ORDERED: NA CHLORIDE 0.9% 1,000 ML ONE (10:37)
[2021-04-26] MEDS ORDERED: HALOPERIDOL LACT 5 MG/ML INJ IV PRN (10:46)
[2021-04-26] MEDS ORDERED: LORazepam 2 MG/ML VIAL IV PRN (10:46)
[2021-04-26] MEDS ORDERED: NA CHLORIDE 0.9% 250 ML IV PRN (10:46)
[2021-04-26] MEDS ORDERED: FENTANYL CITR 100 MCG/2 ML IV PRN (10:46)
[2021-04-26] MEDS ORDERED: propofoL 1,000 MG/100 ML VIAL IV PRN (10:46)
[2021-04-26] MEDS ORDERED: AMIODARONE HCL 150 MG in D5W 100 ML IV STA (11:02)
[2021-04-26] MEDS: MIDAZOLAM HCL 2 MG/2 ML INJ IV PRN (11:07)
--- NOTE | 2021-04-26 11:10 | RAD REPORT ---
EXAM DESCRIPTION: RAD - Chest Single View - 04/26/2021 10:54 am CLINICAL HISTORY: Endotracheal tube insertion COMPARISON: Chest Single View dated 04/26/2021; Abdomen 1 View (KUB) dated 04/25/2021; Chest Single Vie w dated 04/23/2021; Abdomen 1 View (KUB) dated 04/21/2021 FINDINGS: Lines: The endotracheal tube tip is at the superior margin of the aortic arch in satisfact ory position. NG tube below the diaphragm. Lungs: Widespread bilateral airspace disease without substantial change. Pleural: No significant pleural effusions or pneumothorax. Cardiac: Cardiomegaly. Bones: No acute fractures. Other: IMPRESSION: Widespread bilateral airspace disease without substantial change. Interval intubation wi th endotracheal tube in satisfactory position.
[2021-04-26] MEDS: CISATRACURIUM BESYLATE 100 MG in NA CHLORIDE 0.9% 200 ML IV PRN ×3 (11:34→19:27)
[2021-04-26] MEDS: AMIODARONE HCL 900 MG in Dextrose 5%-Water 482 ML IV SCH (11:35)
--- NOTE | 2021-04-26 11:55 | P.PN ---
Subjective Date of Service: 04/26/21 Chief Complaint: covid pneumonia Condition worse patient intubated this morning Review of Systems is unable to be obtained Physical Examination - Vital Signs Temperature: 97.5 F Blood Pressure: 94/48 Pulse: 135 Respirations: 32 Pulse Ox (%): 88 - Physical Exam General: Unresponsive Assessment & Plan - Problems (Diagnosis) (1) Pneumonia due to COVID-19 virus Current Visit: Yes Status: Acute Plan: Respiratory failure patient intubated condition worse chest x-ray reviewed labs reviewed increase dose of Solu-Medrol on max therapy normal echocardiogram
[2021-04-26] MEDS: propofoL 500 MG/50 ML ML IV PRN ×5 (13:07→23:25)
--- NOTE | 2021-04-26 13:08 | P.PN ---
Subjective Date of Service: 04/26/21 Chief Complaint: covid pneumonia Patient developed confusion, became agitated, sometimes pulling off the BiPAP. Also developed atrial fibrillation with RVR, heart rate up to 150s. Patient hypoxic and subsequently intubated for mechanical ventilation. Physical Examination - Vital Signs Temperature: 97.5 F Blood Pressure: 94/48 Pulse: 135 Respirations: 32 Pulse Ox (%): 88 - Physical Exam General: Other (Sedated) HEENT: Other (ETT) Neck: JVD not distended Respiratory: Other (On mechanical ventilation.) Cardiovascular: Edema (Trace bilateral lower extremity edema), Irregular heart rate/rhythm Gastrointestinal: Soft and benign, Non-distended Musculoskeletal: No contractures, No tenderness Integumentary: No rashes Neurological: Other (Sedated. Moves all extremities.) Assessment And Plan Physician Review Additional Text: Problem list Acute respiratory failure with hypoxia, secondary to COVID-19 pneumonia Acute cystitis NSTEMI GERD AFib with RVR Now on mechanical ventilation Continue IV steroid, vitamin supplementation. Pulmonary is following. Continue baricitinib. Urine culture: [place]-sensitive E. coli. Continue IV Rocephin. Patient to complete 5 days of treatment. Echo is unremarkable. Patient started on amiodarone drip. May transition to oral amiodarone. Cardiology-Dr. Washington 's input appreciated. On Xarelto Guarded prognosis
[2021-04-26] MEDS: RIVAROXABAN 20 MG TABLET PO SCH (17:30)
[2021-04-26] MEDS: FLUCONAZOLE 400 MG IVPB 400 MG/200 ML BAG IV SCH (18:13)
[2021-04-26] MEDS: METHYLPREDNISOLONE 125 MG INJ IV SCH (21:41)
[2021-04-27] MEDS: propofoL 500 MG/50 ML ML IV PRN ×9 (01:48→21:44)
[2021-04-27] MEDS: VITAL AF 1,000 ML BOT RTH SCH (03:28)
[2021-04-27] MEDS: CISATRACURIUM BESYLATE 100 MG in NA CHLORIDE 0.9% 200 ML IV PRN ×3 (04:56→20:57)
[2021-04-27] MEDS: METOPROLOL TAR 25 MG TAB PO SCH ×2 (05:34→17:16)
[2021-04-27 05:56] LABS: Absolute Lymphocytes (CBC) 0.4 K/uL (0.7-4.9); Basophils % 0.3 % (0-1.3); Hematocrit 37.7 % (36.0-45.0); Lymphocytes % 1.1 % (15.3-44.8); MPV 8.5 fL (7.6-11.3)
[2021-04-27 06:26] LABS: ALT/SGPT 31 U/L (12-78); AST/SGOT 20 U/L (15-37); Albumin 2.4 g/dL (3.4-5.0); Alkaline Phosphatase 165 U/L (45-117); BUN Blood Urea Nitrogen 45 mg/dL (7-18); Bicarbonate 31 mmol/L (21-32); Bilirubin Total 0.4 mg/dL (0.2-1.0); Glucose Level 199 mg/dL (74-106); Sodium Level 143 mmol/L (136-145)
[2021-04-27 06:29] LABS: Potassium 5.7 mmol/L (3.5-5.1)
[2021-04-27 06:30] LABS: Ferritin 3009.5 ng/mL (8-388)
[2021-04-27 07:02] LABS: Blood Morphology Comment NOTED (NOT SEEN); Platelet Estimate INCR; Polychromasia SLIGHT
[2021-04-27 07:03] LABS: Toxic Granulation 2+
[2021-04-27] MEDS: VITAMIN D 1000 UNIT TAB PO SCH ×2 (08:05→08:08)
[2021-04-27] MEDS: THIAMINE HCL 100 MG TABLET PO SCH (08:05)
[2021-04-27] MEDS: ASPIRIN EC 81 MG TAB PO SCH (08:06)
[2021-04-27] MEDS: FAMOTIDINE 20 MG TAB PO SCH ×2 (08:06→21:14)
[2021-04-27] MEDS: ASCORBIC ACID 500 MG TABLET PO SCH ×4 (08:06→21:15)
[2021-04-27] MEDS: FENOFIBRATE 160 MG TAB PO SCH (08:08)
[2021-04-27] MEDS: buPROPion HCL 100 MG TAB PO SCH ×2 (08:09→21:14)
[2021-04-27] MEDS: ZINC SULFATE 220 MG CAP PO SCH (08:09)
[2021-04-27] MEDS: BARICITINIB 2 MG TABLET PO SCH (08:09)
[2021-04-27] MEDS: METHYLPREDNISOLONE 125 MG INJ IV SCH ×2 (08:19→21:14)
--- NOTE | 2021-04-27 08:27 | RAD REPORT ---
EXAM DESCRIPTION: RAD - Chest Single View - 04/27/2021 6:46 am CLINICAL HISTORY: RESPIRATORY FAILURE COMPARISON: Chest Single View dated 04/26/2021; Chest Single View dated 04/26/2021; Abdomen 1 View ([facility] B) dated 04/25/2021; Chest Single View dated 04/23/2021 FINDINGS: Lines: Endotracheal tube at the aortic arch in satisfactory position. NG tube below the di aphragm. Lungs: Severe bilateral airspace disease without significant change. Pleural: No significant pleural effusions or pneumothorax. Cardiac: Cardiomegaly. Bones: No acute fractures. Other: IMPRESSION: Severe bilateral airspace disease which is without change. Support apparatus in similar position.
[2021-04-27] MEDS: FERROUS SULFATE 142 MG PO SCH (09:00)
[2021-04-27] MEDS: GUAIFENESIN/CODEINE 5ML UCUP PO SCH ×2 (09:00→21:00)
[2021-04-27] MEDS: AMIODARONE HCL 900 MG in Dextrose 5%-Water 482 ML IV SCH (09:16)
[2021-04-27] MEDS ORDERED: SOD POLYSTYREN SUL 15 GM/60 ML UCUP PO ONE (10:00)
[2021-04-27] MEDS: CEFTRIAXONE/SWI 1gm 1 GM/10 ML SYR IV SCH (10:53)
--- NOTE | 2021-04-27 12:03 | P.PN ---
Subjective Date of Service: 04/27/21 Chief Complaint: covid pneumonia Patient intubated on mechanical ventilation. She is maintained on 100% FiO2. Physical Examination - Vital Signs Temperature: 100.1 F Blood Pressure: 119/53 Pulse: 96 Respirations: 25 Pulse Ox (%): 96 - Physical Exam General: Other (Sedated) HEENT: Other (ETT and NGT) Neck: JVD not distended Respiratory: Other (Bilateral upper airway transmitted sounds) Cardiovascular: Regular rate/rhythm, Normal S1 S2, Edema (Bilateral upper and lower extremities) Gastrointestinal: Soft and benign, Non-distended Integumentary: No rashes Neurological: Other (Sedated) Assessment And Plan Physician Review Additional Text: Problem list Acute respiratory failure with hypoxia, secondary to COVID-19 pneumonia Acute cystitis NSTEMI GERD AFib with RVR On mechanical ventilation Continue IV steroid, vitamin supplementation. Pulmonary is following. Continue baricitinib. Urine culture: [place]-sensitive E. coli. Continue IV Rocephin. Patient to complete 5 days of treatment. Echo is unremarkable. Heart rate controlled. Continue amiodarone drip. May transition to oral amiodarone. Cardiology-Dr. Washington 's input appreciated. On Xarelto. NG-tube feeding. Monitor BMP and optimize electrolytes. Guarded prognosis
--- NOTE | 2021-04-27 12:13 | RAD REPORT ---
EXAM DESCRIPTION: RAD - Chest Single View - 04/27/2021 11:59 am CLINICAL HISTORY: post picc line COMPARISON: Chest Single View dated 04/27/2021; Chest Single View dated 04/26/2021; Chest Single View dated 04/26/2021; Abdomen 1 View (KUB) dated 04/25/2021 FINDINGS: Interval placement of a right subclavian approach PICC with tip overlying the right atrium . Could retract by 4 cm for position overlying the SVC. Endotracheal tube and NG tube again noted. Wi despread airspace disease is similar. IMPRESSION: The right subclavian approach PICC tip terminates overlying the right atrium. If SVC pos itioning is desired, recommend retraction by 4 cm.
[2021-04-27] MEDS: RIVAROXABAN 20 MG TABLET PO SCH (17:16)
[2021-04-27] MEDS: FLUCONAZOLE 400 MG IVPB 400 MG/200 ML BAG IV SCH (18:22)
[2021-04-28] MEDS: propofoL 500 MG/50 ML ML IV PRN ×12 (00:24→22:23)
[2021-04-28] MEDS: VITAL AF 1,000 ML BOT RTH SCH (01:54)
[2021-04-28 05:23] LABS: Absolute Lymphocytes (CBC) 0.3 K/uL (0.7-4.9); Basophils % 0.3 % (0-1.3); Hematocrit 36.7 % (36.0-45.0); MPV 8.9 fL (7.6-11.3); RBC Red Blood Cell Count 3.69 M/uL (3.86-4.86)
[2021-04-28 06:01] LABS: C-Reactive Protein 27.9 mg/L (<3.00)
[2021-04-28] MEDS: METOPROLOL TAR 25 MG TAB PO SCH ×2 (06:02→17:09)
[2021-04-28 06:07] LABS: Potassium 5.7 mmol/L (3.5-5.1)
[2021-04-28 06:28] LABS: Ferritin 2303.5 ng/mL (8-388)
[2021-04-28] MEDS: ACETAMINOPHEN 500 MG TAB PO PRN ×2 (08:29→12:39)
[2021-04-28] MEDS: CEFTRIAXONE/SWI 1gm 1 GM/10 ML SYR IV SCH (08:29)
[2021-04-28] MEDS: VITAMIN D 1000 UNIT TAB PO SCH (08:30)
[2021-04-28] MEDS: THIAMINE HCL 100 MG TABLET PO SCH (08:30)
[2021-04-28] MEDS: METHYLPREDNISOLONE 125 MG INJ IV SCH ×2 (08:30→21:50)
[2021-04-28] MEDS: FENOFIBRATE 160 MG TAB PO SCH (08:31)
[2021-04-28] MEDS: FAMOTIDINE 20 MG TAB PO SCH ×2 (08:31→21:51)
[2021-04-28] MEDS: ASCORBIC ACID 500 MG TABLET PO SCH ×4 (08:31→21:50)
[2021-04-28] MEDS: CISATRACURIUM BESYLATE 100 MG in NA CHLORIDE 0.9% 200 ML IV PRN ×2 (08:31→21:07)
[2021-04-28] MEDS: BARICITINIB 2 MG TABLET PO SCH (08:32)
[2021-04-28] MEDS: buPROPion HCL 100 MG TAB PO SCH ×2 (08:32→21:50)
[2021-04-28] MEDS: AMIODARONE HCL 900 MG in Dextrose 5%-Water 482 ML IV SCH (08:33)
--- NOTE | 2021-04-28 08:42 | RAD REPORT ---
EXAM DESCRIPTION: RAD - Chest Single View - 04/28/2021 6:09 am CLINICAL HISTORY: resp failure Chest pain. COMPARISON: Chest Single View dated 04/27/2021; Chest Single View dated 04/27/2021; Chest Single View dated 04/26/2021; Chest Single View dated 04/26/2021 FINDINGS: Portable technique limits examination quality. Tip of the endotracheal tube is at the level of the superior aortic arch. Enteric tube descends into the stomach. Right-sided PICC line has tip in the SVC. Extensive confluent bilateral pulmonary opacit ies show no significant change since yesterday's prior study. The heart is upper limit normal size.
[2021-04-28] MEDS: GUAIFENESIN/CODEINE 5ML UCUP PO SCH ×2 (09:00→20:00)
[2021-04-28] MEDS: ASPIRIN EC 81 MG TAB PO SCH (09:17)
[2021-04-28] MEDS: ZINC SULFATE 220 MG CAP PO SCH (09:19)
[2021-04-28] MEDS ORDERED: CEFEPIME 1 GM/VIAL IV SCH (10:46)
--- NOTE | 2021-04-28 10:51 | P.PN ---
Subjective Date of Service: 04/28/21 Chief Complaint: Respiratory failure Patient is on a ventilator on 100% FiO2 patient is febrile Review of Systems is unable to be obtained Physical Examination - Vital Signs Temperature: 101 F Blood Pressure: 136/69 Pulse: 114 Respirations: 25 Pulse Ox (%): 93 - Physical Exam General: Unresponsive Assessment & Plan - Problems (Diagnosis) (1) Pneumonia due to COVID-19 virus Current Visit: Yes Status: Acute Plan: Respiratory failure patient is on 100% FiO2 febrile labs reviewed hyperkalemia I have added some Lasix blood and urinary cultures including sputum cultures hyperkalemia continue with Kayexalate bleed induced by a combination of paralytic drugs and steroids to wean off paralytic drugs on maximal therapy
--- NOTE | 2021-04-28 10:59 | P.PN ---
Subjective Date of Service: 04/28/21 Chief Complaint: covid pneumonia Patient intubated on mechanical ventilation. She is maintained on 100% FiO2. She has hyperkalemia. She is having fever today. Physical Examination - Vital Signs Temperature: 101 F Blood Pressure: 136/69 Pulse: 114 Respirations: 25 Pulse Ox (%): 93 - Physical Exam General: Other (Sedated) HEENT: Other (ETT and NGT) Neck: JVD not distended Respiratory: Other (Bilateral upper airway transmitted sounds) Cardiovascular: Normal pulses, Irregular heart rate/rhythm Gastrointestinal: Normal bowel sounds, Soft and benign, Non-distended Musculoskeletal: Swelling (Bilateral upper and lower extremities) Integumentary: No rashes Neurological: Other (Sedated) Assessment And Plan Physician Review Additional Text: Problem list Acute respiratory failure with hypoxia, secondary to COVID-19 pneumonia Acute cystitis NSTEMI GERD AFib with RVR On mechanical ventilation Continue IV steroid, vitamin supplementation. Pulmonary is following. Continue baricitinib. Urine culture: [place]-sensitive E. coli. Patient completed antibiotics for UTI. She is started on IV cefepime and doxycycline for secondary bacterial infection given persistent fever and severe leukocytosis. Echo is unremarkable. Heart rate controlled. Transition amiodarone drip to oral amiodarone. Cardiology-Dr. Washington 's input appreciated. On Xarelto. NG-tube feeding. Monitor BMP and optimize electrolytes. Correct hyperkalemia with kayexalate. Patient is dependent on Nimbex to ensure synchronous vent breathing. Number next may be contributing to the hyperkalemia. Guarded prognosis
[2021-04-28] MEDS ORDERED: SOD POLYSTYREN SUL 15 GM/60 ML UCUP PO ONE (11:00)
[2021-04-28] MEDS ORDERED: FUROSEMIDE 20 MG/ 2ML VIAL IV ONE (11:00)
[2021-04-28] MEDS: DOXYCYCLINE 100 MG CAP PO SCH ×2 (12:35→21:49)
[2021-04-28] MEDS: CEFEPIME/SWI 1gm 10 ML IVP SCH ×2 (12:36→21:49)
[2021-04-28] MEDS: MIDAZOLAM HCL 2 MG/2 ML INJ IV PRN (13:07)
[2021-04-28 14:10] LABS: Urine Appearance CLEAR (Clear); Urine Bilirubin NEGATIVE (Negative); Urine Blood 2+ (Negative); Urine Color YELLOW (Yellow); Urine Glucose NEGATIVE (Negative); Urine Protein NEGATIVE (Negative); Urine Urobilinogen 0.2 mg/dL (0.2-1.0)
[2021-04-28 14:19] LABS: Urine Bacteria NONE SEEN /HPF (<20); Urine Microscopic Reflex ORDER UMIC; Urine Mucus SLIGHT /HPF (NONE SEEN); Urine RBC 20-50 /HPF (NONE SEEN)
[2021-04-28] MEDS: RIVAROXABAN 20 MG TABLET PO SCH (17:09)
[2021-04-28] MEDS: FLUCONAZOLE 400 MG IVPB 400 MG/200 ML BAG IV SCH (18:21)
[2021-04-28] MEDS ORDERED: HYDROMORPHONE HCL 2 MG/ML inj IV PRN (18:43)
[2021-04-28] MEDS: AMIODARONE HCL 200 MG TAB PO SCH (21:49)
[2021-04-29] MEDS: VITAL AF 1,000 ML BOT RTH SCH (00:24)
[2021-04-29] MEDS: ACETAMINOPHEN 500 MG TAB PO PRN ×2 (00:24→03:37)
[2021-04-29] MEDS: propofoL 500 MG/50 ML ML IV PRN ×5 (00:42→08:32)
[2021-04-29] MEDS: CISATRACURIUM BESYLATE 100 MG in NA CHLORIDE 0.9% 200 ML IV PRN (02:11)
[2021-04-29] MEDS: NOREPINEPHRINE 4 MG in D5W 250 ML IV PRN ×2 (03:54→08:33)
[2021-04-29] MEDS ORDERED: NOREPINEPHRINE 4mg/D5W 250mL 4 MG/250 ML BAG IV ONE (04:10)
[2021-04-29] MEDS: METOPROLOL TAR 25 MG TAB PO SCH (06:00)
[2021-04-29 06:25] LABS: Absolute Lymphocytes (CBC) 0.4 K/uL (0.7-4.9); Basophils % 0.3 % (0-1.3); Hematocrit 32.3 % (36.0-45.0); Lymphocytes % 0.8 % (15.3-44.8); MPV 9.5 fL (7.6-11.3); RBC Red Blood Cell Count 3.27 M/uL (3.86-4.86)
[2021-04-29 06:33] VITALS: O2SAT 85
[2021-04-29 06:43] LABS: C-Reactive Protein 9.58 mg/L (<3.00); Ferritin 3279.7 ng/mL (8-388); Potassium 4.5 mmol/L (3.5-5.1)
--- NOTE | 2021-04-29 07:09 | RAD REPORT ---
EXAM DESCRIPTION: RAD - Chest Single View - 04/29/2021 6:16 am CLINICAL HISTORY: resp failure COMPARISON: Chest Single View dated 04/28/2021; Chest Single View dated 04/27/2021; Chest Single View dated 04/27/2021; Chest Single View dated 04/26/2021 FINDINGS: Lines: Endotracheal tube at the superior margin of the aortic arch in satisfactory positio n. NG tube below the diaphragm. Right subclavian approach PICC with tip overlying the proximal SVC. Lungs: Similar widespread bilateral airspace disease. Pleural: No significant pleural effusions or pneumothorax. Cardiac: The heart size is within normal limits. Bones: No acute fractures. Other: IMPRESSION: Unchanged severe bilateral airspace disease. Support apparatus in satisfactory positioni ng.
[2021-04-29] MEDS: VITAMIN D 1000 UNIT TAB PO SCH (08:31)
[2021-04-29] MEDS: METHYLPREDNISOLONE 125 MG INJ IV SCH (08:33)
[2021-04-29] MEDS: ASPIRIN EC 81 MG TAB PO SCH (08:34)
[2021-04-29] MEDS: AMIODARONE HCL 200 MG TAB PO SCH (08:34)
[2021-04-29] MEDS: DOXYCYCLINE 100 MG CAP PO SCH (08:35)
[2021-04-29] MEDS: BARICITINIB 2 MG TABLET PO SCH (08:41)
[2021-04-29] MEDS: ASCORBIC ACID 500 MG TABLET PO SCH (08:42)
[2021-04-29] MEDS: FAMOTIDINE 20 MG TAB PO SCH (08:42)
[2021-04-29] MEDS: THIAMINE HCL 100 MG TABLET PO SCH (08:42)
[2021-04-29] MEDS: buPROPion HCL 100 MG TAB PO SCH (08:43)
[2021-04-29] MEDS: ZINC SULFATE 220 MG CAP PO SCH (08:45)
[2021-04-29] MEDS ORDERED: NA CHLORIDE 0.9% 1,000 ML ONE (08:51)
[2021-04-29] MEDS: GUAIFENESIN/CODEINE 5ML UCUP PO SCH (09:00)
[2021-04-29] MEDS ORDERED: CEFEPIME/SWI 1gm 10 ML IVP SCH (09:00)
[2021-04-29 09:41] LABS: Platelet Estimate ADEQ; Platelets, Giant PRESENT
[2021-04-29 09:42] LABS: Blood Morphology Comment NOT SEEN (NOT SEEN)
[2021-04-29] MEDS ORDERED: NOREPINEPHRINE 8 MG in Dextrose 5%-Water 500 ML IV PRN (11:32)
--- NOTE | 2021-04-29 12:27 | P.DS ---
Admission Date: 04/15/21 Discharge Date: 04/29/21 Disposition: Discharge Condition: FAIR Reason for Admission: covid pneumonia Consultations: Cardiology Pulmonary - Problems (1) Acute respiratory failure with hypoxia Status: Acute (2) Septic shock Status: Acute (3) Pneumonia due to COVID-19 virus Status: Acute (4) Atrial fibrillation with RVR Status: Acute (5) NSTEMI (non-ST elevated myocardial infarction) Status: Acute (6) Acute cystitis Status: Acute Brief History of Present Illness: 60-year-old woman with a history of GERD presented to the emergency department with 1 week history of cough and shortness of breath. Patient tested positive COVID 19 in the ED. She reported nausea and pleuritic chest pain. Chest x-ray demonstrated COVID pneumonia. Patient was admitted for further management. Hospital Course: Patient admitted to the medical floor and treated for COVID pneumonia with IV steroids, vitamin supplementation, zinc supplementation. She was treated with Remdesivir and received Baracitinib. Patient respiratory condition declined, her acute respiratory failure got worse, she became BiPAP dependent, confused and was transferred to the ICU where she continued to decline. She was eventually intubated and put on mechanical ventilation. She had UTI which was treated with antibiotics. She became hypoxic even on the ventilator, developed septic shock and was requiring 2 vasopressors. She also became unresponsive. Family made her DNR and later decided to withdraw care. Patient a few minutes after withdrawal of care. Time of is 1153 hours. Vital Signs/Physical Exam: Temp Pulse Resp BP Pulse Ox 100.7 F 133 H 28 H 106/50 L 85 L 04/29/21 04:37 04/29/21 06:45 04/29/21 06:30 04/29/21 06:45 04/29/21 06:45 Laboratory Data at Discharge: WBC 45.80 K/uL (4.3-10.9) H* D 04/29/21 05:55 Hgb 10.4 g/dL (12.0-15.0) L 04/29/21 05:55 Hct 32.3 % (36.0-45.0) L 04/29/21 05:55 Plt Count 239 K/uL (152-406) D 04/29/21 05:55 PT 12.7 SECONDS (9.5-12.5) H 04/15/21 00:22 INR 1.10 04/15/21 00:22 Sodium 146 mmol/L (136-145) H 04/29/21 05:55 Potassium 4.5 mmol/L (3.5-5.1) 04/29/21 05:55 BUN 72 mg/dL (7-18) H D 04/29/21 05:55 Creatinine 1.35 mg/dL (0.55-1.3) H 04/29/21 05:55 Glucose 275 mg/dL (74-106) H 04/29/21 05:55 Phosphorus 4.2 mg/dL (2.5-4.9) 04/21/21 03:10 Magnesium 2.9 mg/dL (1.8-2.4) H 04/23/21 04:56 Total Bilirubin 0.4 mg/dL (0.2-1.0) 04/27/21 05:20 AST 20 U/L (15-37) 04/27/21 05:20 ALT 31 U/L (12-78) 04/27/21 05:20 Alkaline Phosphatase 165 U/L (45-117) H 04/27/21 05:20 Troponin I 0.91 ng/mL (0.0-0.045) H* 04/21/21 09:59 Triglycerides 126 mg/dL (<150) 04/16/21 04:36 Cholesterol 108 mg/dL (<200) 04/16/21 04:36 HDL Cholesterol 43 mg/dL (40-60) 04/16/21 04:36 Cholesterol/HDL Ratio 2.51 04/16/21 04:36 Home Medications: Ascorbic Acid [Vitamin C*] 1,000 mg PO DAILY 03/26/21 Bismuth Subsalicylate [Pepto-Bismol] 262 mg PO PRN PRN 03/26/21 Bupropion HCl [Wellbutrin Sr] 100 mg PO BID 03/26/21 Calcium Carbonate [Tums] 200 mg PO PRN PRN 03/26/21 Ferrous Sulfate [Slow Fe] 142 mg PO DAILY 03/26/21 Ibuprofen [Motrin Ib] 200 mg PO PRN PRN 03/26/21 Lansoprazole [Prevacid] 30 mg PO DAILY 03/26/21 Pseudoephedrine HCl [Sudafed] 30 mg PO DAILY 03/26/21 Pantoprazole [Protonix Tab*] 40 mg PO DAILY 04/15/21 Sucralfate [Carafate] 1 gm PO BEDTIME 04/15/21 Followup: Jennifer Owen NP [Primary Care Provider] - Time spent managing pt's care (in minutes): 36
[2021-04-29 12:28] VITALS: TEMP 105.9
[2021-04-29 12:33] VITALS: BP 53/25
== END 2021-04-29 11:54 | disposition expired | DRG 208 ==
LOC: ER 23:48 → ERHOLD 04-15 02:52 → 3RD-ICU 04-15 21:09 → 4TH 04-17 10:00 → 3RD-ICU 04-21 00:48
PROVIDERS: ADMIT Internal Medicine; ATTEND Internal Medicine
PROC: 0T9B70Z Drainage of Bladder with Drainage Device, Via Natural or Artificial Opening (ICD-10-PCS; 2021-04-20)
PROC: 5A1945Z Respiratory Ventilation, 24-96 Consecutive Hours (ICD-10-PCS; principal; 2021-04-26)
PROC: 5A09357 Assistance with Respiratory Ventilation, Less than 24 Consecutive Hours, Continuous Positive Airway Pressure (ICD-10-PCS; 2021-04-26)
PROC: 0BH17EZ Insertion of Endotracheal Airway into Trachea, Via Natural or Artificial Opening (ICD-10-PCS; 2021-04-26)
PROC: 02HV33Z Insertion of Infusion Device into Superior Vena Cava, Percutaneous Approach (ICD-10-PCS; 2021-04-27)
DX: U07.1 COVID-19 (principal); J12.82 Pneumonia due to coronavirus disease 2019; J96.01 Acute respiratory failure with hypoxia; I21.4 Non-ST elevation (NSTEMI) myocardial infarction; A41.9 Sepsis, unspecified organism; R65.21 Severe sepsis with septic shock; N30.00 Acute cystitis without hematuria; E87.0 Hyperosmolality and hypernatremia; K21.9 Gastro-esophageal reflux disease without esophagitis; I48.91 Unspecified atrial fibrillation; E87.5 Hyperkalemia; Z66 Do not resuscitate; Z78.1 Physical restraint status
CPT/HCPCS: 36415; 36569; 71045; 71275; 74018; 76705; 80048; 80053; 80061; 80076; 81003; 81015; 82248; 82728; 82947; 83605; 83735; 83880; 84100; 84145; 84439; 84443; 84484; 85025; 85379; 85610; 86140; 87040; 87070; 87077; 87086; 87088; 87186; 87205; 93005; 93306; 94002; 94003; 94660; 94760; 96374; 96375; 99285; J0282; J0330; J0692; J0696; J1170; J1450; J1630; J1650; J1940; J2185; J2250; J2270; J2370; J2405; J2920; J2930; J3486; J7030; J7050; J7060; Q9967; U0003